=== PATIENT | male | born 1945 | race Caucasian/White ===

== ENCOUNTER 2019-03-26 15:56 | Inpatient (IN) | payer MEDICARE, MEDICAID ==
[~2019-03-26] VITALS: Ht 162.6 cm; Wt 90.9 kg
[~2019-03-26 15:56] MED LIST: ACET-2247 PO; AMLO10TA7 PO; ATOR40TA28 PO; CARV25 PO; FAMO20 PO; FOLI1TAB15 PO; FURO40 PO; HYDR-4174 PO; INSU100V SQ; ISOS10TA16 PO; PRED5 PO; RIVA20TA PO; TACR1 PO; TAMS-13 PO; TRAVZOS OU
[2019-03-26] MEDS ORDERED: TACR1 PO ×2 (16:14→18:06)
[2019-03-26] MEDS ORDERED: FURO40 PO (16:14)
[2019-03-26] MEDS ORDERED: LIPA1CAP18 PO (16:14)
[2019-03-26] MEDS ORDERED: GABA-531 PO (16:14)
[2019-03-26 16:25] LABS: BASOPHILS % (AUTO) 0.5 % (0.0-2.0); EOSINOPHILS % (AUTO) 0.3 % (1.0-6.0); HEMOGLOBIN 12.6 g/dL (13.5-17.5); LYMPHOCYTES # (AUTO) 1.2 K/uL (1.0-4.8); LYMPHOCYTES % (AUTO) 9.1 % (22.0-44.0); MEAN CORPUSCULAR HEMOGLOBIN 28.8 pg (26.0-34.0); MEAN CORPUSCULAR HGB CONC 33.2 G/dL (31.0-37.0); MEAN CORPUSCULAR VOLUME 87 fL (80-100); MONOCYTES # (AUTO) 1.1 K/uL (0.1-1.0); MONOCYTES % (AUTO) 8.2 % (2.0-9.0); NEUTROPHILS % (AUTO) 81.9 % (40.0-70.0); PLATELET COUNT (AUTO) 162 K/uL (150-450); RED BLOOD CELL COUNT(AUTO) 4.37 MIL/uL (4.50-5.90); RED CELL DISTRIBUTION WIDTH 16.5 % (11.5-14.5)
[2019-03-26 16:36] LABS: GLUCOSE,POINT OF CARE 266 MG/DL (70-110)
[2019-03-26 16:42] LABS: CALCIUM, TOTAL 9.2 mg/dL (8.8-10.5); CREATININE 1.53 mg/dL (0.60-1.30); POTASSIUM 3.8 mmol/L (3.5-5.1)
[2019-03-26 16:48] LABS: ALBUMIN 3.1 g/dL (3.4-5.0); BILIRUBIN,TOTAL 0.9 mg/dL (0.1-1.0); TOTAL PROTEIN, SERUM 6.7 g/dL (6.4-8.2)
[2019-03-26] MEDS ORDERED: NITROGLYCERIN 0.4 MG SUBLINGUAL TABLET #25 SL ONE (18:00)
[2019-03-26] MEDS ORDERED: ATOR20TA86 PO (18:06)
[2019-03-26] MEDS ORDERED: ACETAMINOPHEN 325 MG TABLET PO PRN (18:30)
[2019-03-26] MEDS ORDERED: 0.9% SODIUM CHLORIDE 10 ML SYRINGE IVP PRN (18:30)
[2019-03-26] MEDS ORDERED: ONDANSETRON HCL 4 MG/2 ML VIAL IVP PRN ×2 (18:30→21:00)
[2019-03-26] MEDS ORDERED: MAGNESIUM HYDROXIDE SUSPENSION 30 ML UDCUP PO PRN (21:00)
[2019-03-26] MEDS ORDERED: ZOLPIDEM TARTRATE 10 MG TABLET PO PRN (21:00)
[2019-03-26] MEDS ORDERED: IPRATROPIUM BROMIDE 0.5 MG/2.5 ML NEB SOLUTION NEB PRN (21:00)
[2019-03-26 21:14] VITALS: BP 155/79
[2019-03-26] MEDS: CARVEDILOL 25 MG TABLET PO SCH (22:38)
[2019-03-26] MEDS: HydrALAZINE HCL 50 MG TABLET PO SCH (22:38)
[2019-03-26] MEDS: DOCUSATE SODIUM 100 MG CAPSULE PO SCH (22:38)
[2019-03-26] MEDS: TRAVOPROST-Z 0.004% 2.5 ML OPHTHALMIC SOLUTION OU SCH (22:38)
[2019-03-26] MEDS: ISOSORBIDE DINITRATE 10 MG TABLET PO SCH (22:38)
[2019-03-26] MEDS: TACROLIMUS ANHYDROUS 1 MG CAPSULE PO SCH (22:38)
[2019-03-26] MEDS: NITROGLYCERIN 2% (1 GM=INCH) PACKET TP SCH (23:53)
[2019-03-27] VITALS (7 sets, daily range): BP systolic 126–161; BP diastolic 69–82
[2019-03-27] MEDS: ACETAMINOPHEN 325 MG TABLET PO PRN ×2 (02:39→10:05)
[2019-03-27] MEDS: NITROGLYCERIN 2% (1 GM=INCH) PACKET TP SCH ×6 (06:08→23:44)
[2019-03-27] MEDS: DOCUSATE SODIUM 100 MG CAPSULE PO SCH ×2 (07:56→20:24)
[2019-03-27] MEDS: GABAPENTIN 300 MG CAPSULE PO SCH (07:56)
[2019-03-27] MEDS: ATORVASTATIN CALCIUM 20 MG TABLET PO SCH (07:56)
[2019-03-27 07:57] LABS: CHOL/HDL RATIO 3.2 (4.2-7.3)
[2019-03-27] MEDS: AmLODIPine BESYLATE 10 MG TABLET PO SCH (07:57)
[2019-03-27] MEDS: FAMOTIDINE 20 MG TABLET PO SCH (07:57)
[2019-03-27] MEDS: FOLIC ACID 1 MG TABLET PO SCH (07:57)
[2019-03-27] MEDS: ISOSORBIDE DINITRATE 10 MG TABLET PO SCH ×2 (07:57→20:21)
[2019-03-27] MEDS: ASPIRIN 81 MG CHEWABLE TABLET PO SCH (07:57)
[2019-03-27] MEDS: FUROSEMIDE 40 MG TABLET PO SCH (07:57)
[2019-03-27] MEDS: TAMSULOSIN HCL 0.4 MG CAPSULE PO SCH (07:57)
[2019-03-27] MEDS: CARVEDILOL 25 MG TABLET PO SCH ×2 (07:58→20:20)
[2019-03-27] MEDS: AMYLASE/LIPASE/PROTEASE 60/12/38 MU DR CAPSULE PO SCH ×3 (07:59→18:18)
[2019-03-27] MEDS: PredniSONE 5 MG TABLET PO SCH (07:59)
[2019-03-27] MEDS: TACROLIMUS ANHYDROUS 1 MG CAPSULE PO SCH ×2 (08:00→20:21)
[2019-03-27] MEDS: HydrALAZINE HCL 50 MG TABLET PO SCH ×2 (09:23→20:20)
[2019-03-27 11:37] LABS: APPEARANCE,URINE CLEAR (CLEAR); BILIRUBIN,URINE NEGATIVE (NEGATIVE); GLUCOSE, URINE (UA) >=1000 mg/dL (NEGATIVE); KETONES,URINE NEGATIVE (NEGATIVE); LEUKOCYTE ESTERASE ,URINE NEGATIVE (NEGATIVE); NITRATE,URINE NEGATIVE (NEGATIVE); OCCULT BLOOD,URINE NEGATIVE (NEGATIVE); PH,URINE 6.5 (5.0-8.0); PROTEIN,URINE SEE CONFIRM (NEGATIVE)
[2019-03-27 11:51] LABS: BACTERIA,URINE None Seen /HPF (None Seen); RBC,URINE 0-2 /HPF (0-2); SULFOSALICYLIC ACID,URINE 1+ (Negative); WBC,URINE 0-2 /HPF (0-5)
[2019-03-27] MEDS: TraMADol HCL 50 MG TABLET PO PRN ×2 (12:20→20:29)
[2019-03-27] MEDS: RIVAROXABAN 20 MG TABLET PO SCH ×2 (18:18→18:21)
[2019-03-27 19:17] LABS: INFLUENZA TYPE A NEGATIVE FOR TYPE A (NEGATIVE); INFLUENZA TYPE B NEGATIVE FOR TYPE B (NEGATIVE)
[2019-03-27] MEDS: TRAVOPROST-Z 0.004% 2.5 ML OPHTHALMIC SOLUTION OU SCH (20:21)
[2019-03-27] MEDS ORDERED: OxyCODONE HCL/ACETAMINOPHEN 5-325 MG TABLET PO PRN (22:30)
[2019-03-27] MEDS ORDERED: DEXTROSE 50%-WATER 25 GM/50 ML SYRINGE IVP PRN (22:30)
[2019-03-28 03:55] LABS: GLUCOMETER DEV NAME(LOC) 5N.2; GLUCOSE,POINT OF CARE 559 MG/DL (70-110)
[2019-03-28 04:00] LABS: GLUCOMETER DEV NAME(LOC) 5N.1; GLUCOSE,POINT OF CARE > 600 MG/DL (70-110)
[2019-03-28 04:35] VITALS: BP 173/70
[2019-03-28] MEDS: NITROGLYCERIN 2% (1 GM=INCH) PACKET TP SCH ×4 (06:00→23:10)
[2019-03-28 06:46] LABS: BASOPHILS % (AUTO) 0.1 % (0.0-2.0); EOSINOPHILS % (AUTO) 0.5 % (1.0-6.0); HEMATOCRIT 36.5 % (41-53); LYMPHOCYTES # (AUTO) 0.9 K/uL (1.0-4.8); LYMPHOCYTES % (AUTO) 7.1 % (22.0-44.0); MEAN CORPUSCULAR HEMOGLOBIN 28.7 pg (26.0-34.0); MEAN CORPUSCULAR HGB CONC 32.8 G/dL (31.0-37.0); MEAN CORPUSCULAR VOLUME 88 fL (80-100); MONOCYTES % (AUTO) 7.9 % (2.0-9.0); NEUTROPHILS % (AUTO) 84.4 % (40.0-70.0); PLATELET COUNT (AUTO) 141 K/uL (150-450); RED BLOOD CELL COUNT(AUTO) 4.17 MIL/uL (4.50-5.90); RED CELL DISTRIBUTION WIDTH 16.2 % (11.5-14.5)
[2019-03-28 07:03] LABS: CREATININE 1.18 mg/dL (0.60-1.30); POTASSIUM 3.9 mmol/L (3.5-5.1)
[2019-03-28 07:20] VITALS: BP 157/68
[2019-03-28] MEDS: FUROSEMIDE 40 MG TABLET PO SCH (08:15)
[2019-03-28] MEDS: GABAPENTIN 300 MG CAPSULE PO SCH (08:15)
[2019-03-28] MEDS: FOLIC ACID 1 MG TABLET PO SCH (08:15)
[2019-03-28] MEDS: TAMSULOSIN HCL 0.4 MG CAPSULE PO SCH (08:15)
[2019-03-28] MEDS: FAMOTIDINE 20 MG TABLET PO SCH (08:15)
[2019-03-28] MEDS: AmLODIPine BESYLATE 10 MG TABLET PO SCH (08:15)
[2019-03-28] MEDS: DOCUSATE SODIUM 100 MG CAPSULE PO SCH ×2 (08:15→20:53)
[2019-03-28] MEDS: ATORVASTATIN CALCIUM 20 MG TABLET PO SCH (08:15)
[2019-03-28] MEDS: ASPIRIN 81 MG CHEWABLE TABLET PO SCH (08:16)
[2019-03-28] MEDS: HydrALAZINE HCL 50 MG TABLET PO SCH ×2 (08:16→20:53)
[2019-03-28] MEDS: AMYLASE/LIPASE/PROTEASE 60/12/38 MU DR CAPSULE PO SCH ×3 (08:16→17:37)
[2019-03-28] MEDS: TACROLIMUS ANHYDROUS 1 MG CAPSULE PO SCH ×2 (08:16→20:53)
[2019-03-28] MEDS: PredniSONE 5 MG TABLET PO SCH (08:17)
[2019-03-28] MEDS: CARVEDILOL 25 MG TABLET PO SCH ×2 (08:17→20:53)
[2019-03-28] MEDS: INSULIN LISPRO 100 UNITS/ML SQ PRN ×4 (08:25→20:51)
[2019-03-28] MEDS: ISOSORBIDE DINITRATE 10 MG TABLET PO SCH ×2 (09:00→20:53)
[2019-03-28] MEDS: OxyCODONE HCL/ACETAMINOPHEN 10-325 MG TABLET PO PRN ×3 (10:47→21:58)
[2019-03-28 11:15] LABS: GLUCOMETER DEV NAME(LOC) 5S.1; GLUCOSE,POINT OF CARE 296 MG/DL (70-110)
[2019-03-28 11:30] VITALS: BP 132/68
[2019-03-28 11:45] LABS: GLUCOMETER DEV NAME(LOC) 5N.1; GLUCOSE,POINT OF CARE 231 MG/DL (70-110)
[2019-03-28] MEDS: INSULIN GLARGINE,HUM.REC.ANLOG 100 UNITS/ML SQ SCH ×2 (13:58→20:52)
[2019-03-28 15:45] VITALS: BP 150/70
[2019-03-28 17:10] LABS: GLUCOMETER DEV NAME(LOC) 5S.1; GLUCOSE,POINT OF CARE 286 MG/DL (70-110)
[2019-03-28] MEDS: RIVAROXABAN 20 MG TABLET PO SCH (17:38)
[2019-03-28] MEDS ORDERED: SODIUM CHLORIDE 0.9% 250 ML IV ONE (19:06)
[2019-03-28 19:16] VITALS: BP 136/73
[2019-03-28] MEDS: TRAVOPROST-Z 0.004% 2.5 ML OPHTHALMIC SOLUTION OU SCH (21:01)
[2019-03-28 23:50] VITALS: BP 144/71
[2019-03-29 05:07] VITALS: BP 146/74
[2019-03-29 05:31] LABS: BASOPHILS % (AUTO) 0.1 % (0.0-2.0); HEMATOCRIT 34.8 % (41-53); HEMOGLOBIN 11.4 g/dL (13.5-17.5); LYMPHOCYTES # (AUTO) 0.9 K/uL (1.0-4.8); LYMPHOCYTES % (AUTO) 8.1 % (22.0-44.0); MEAN CORPUSCULAR HEMOGLOBIN 28.8 pg (26.0-34.0); MEAN CORPUSCULAR HGB CONC 32.8 G/dL (31.0-37.0); MEAN CORPUSCULAR VOLUME 88 fL (80-100); MONOCYTES # (AUTO) 0.8 K/uL (0.1-1.0); NEUTROPHILS # (AUTO) 9.7 K/uL (1.8-7.7); NEUTROPHILS % (AUTO) 83.8 % (40.0-70.0); PLATELET COUNT (AUTO) 143 K/uL (150-450); RED BLOOD CELL COUNT(AUTO) 3.96 MIL/uL (4.50-5.90)
[2019-03-29 05:40] LABS: ALBUMIN 2.5 g/dL (3.4-5.0); BILIRUBIN,TOTAL 0.5 mg/dL (0.1-1.0); CALCIUM, TOTAL 9.3 mg/dL (8.8-10.5); CREATININE 1.38 mg/dL (0.60-1.30); POTASSIUM 4.4 mmol/L (3.5-5.1); TOTAL PROTEIN, SERUM 6.4 g/dL (6.4-8.2)
[2019-03-29] MEDS: INSULIN LISPRO 100 UNITS/ML SQ PRN ×4 (05:41→21:31)
[2019-03-29] MEDS: NITROGLYCERIN 2% (1 GM=INCH) PACKET TP SCH ×4 (05:43→23:27)
[2019-03-29 06:31] LABS: GLUCOMETER DEV NAME(LOC) 5N.1; GLUCOSE,POINT OF CARE 322 MG/DL (70-110)
[2019-03-29] MEDS: OxyCODONE HCL/ACETAMINOPHEN 10-325 MG TABLET PO PRN ×2 (07:40→20:46)
[2019-03-29] MEDS: AMYLASE/LIPASE/PROTEASE 60/12/38 MU DR CAPSULE PO SCH ×3 (08:00→17:53)
[2019-03-29] MEDS: TACROLIMUS ANHYDROUS 1 MG CAPSULE PO SCH ×3 (09:00→20:49)
[2019-03-29] MEDS: TAMSULOSIN HCL 0.4 MG CAPSULE PO SCH (09:00)
[2019-03-29] MEDS: GABAPENTIN 300 MG CAPSULE PO SCH (09:00)
[2019-03-29] MEDS: INSULIN GLARGINE,HUM.REC.ANLOG 100 UNITS/ML SQ SCH ×2 (09:00→21:00)
[2019-03-29] MEDS: FOLIC ACID 1 MG TABLET PO SCH (09:00)
[2019-03-29] MEDS: CARVEDILOL 25 MG TABLET PO SCH ×3 (09:00→20:49)
[2019-03-29] MEDS: PredniSONE 5 MG TABLET PO SCH ×2 (09:00→15:36)
[2019-03-29] MEDS: FAMOTIDINE 20 MG TABLET PO SCH (09:00)
[2019-03-29] MEDS: FUROSEMIDE 40 MG TABLET PO SCH (09:00)
[2019-03-29] MEDS: AmLODIPine BESYLATE 10 MG TABLET PO SCH ×2 (09:00→15:36)
[2019-03-29] MEDS: DOCUSATE SODIUM 100 MG CAPSULE PO SCH ×2 (09:00→20:46)
[2019-03-29] MEDS: ASPIRIN 81 MG CHEWABLE TABLET PO SCH ×2 (09:00→15:36)
[2019-03-29] MEDS: ISOSORBIDE DINITRATE 10 MG TABLET PO SCH ×2 (09:00→20:46)
[2019-03-29] MEDS: HydrALAZINE HCL 50 MG TABLET PO SCH ×3 (09:00→20:48)
[2019-03-29] MEDS: ATORVASTATIN CALCIUM 20 MG TABLET PO SCH (09:00)
[2019-03-29 09:37] VITALS: BP 158/70
[2019-03-29 11:16] VITALS: BP 152/77
[2019-03-29 12:46] LABS: GLUCOMETER DEV NAME(LOC) 5S.1; GLUCOSE,POINT OF CARE 282 MG/DL (70-110)
[2019-03-29] MEDS ORDERED: VANCOMYCIN HCL 1.5 GM in DEXTROSE 5%-WATER 250 ML IV ONE (13:00)
[2019-03-29] MEDS ORDERED: SODIUM CHLORIDE 0.9% 250 ML IV ONE (13:19)
[2019-03-29 15:36] VITALS: BP 183/67
[2019-03-29 17:46] LABS: GLUCOMETER DEV NAME(LOC) 5S.1; GLUCOSE,POINT OF CARE 239 MG/DL (70-110)
[2019-03-29] MEDS: RIVAROXABAN 20 MG TABLET PO SCH (17:53)
[2019-03-29 17:56] LABS: GLUCOMETER DEV NAME(LOC) 5S.2A; GLUCOSE,POINT OF CARE 293 MG/DL (70-110)
[2019-03-29 20:42] VITALS: BP 160/86
[2019-03-29] MEDS: TRAVOPROST-Z 0.004% 2.5 ML OPHTHALMIC SOLUTION OU SCH (20:48)
[2019-03-30] MEDS: OxyCODONE HCL/ACETAMINOPHEN 10-325 MG TABLET PO PRN (03:57)
[2019-03-30 04:25] VITALS: BP 152/67
[2019-03-30 05:11] LABS: GLUCOMETER DEV NAME(LOC) 5N.1; GLUCOSE,POINT OF CARE 158 MG/DL (70-110)
[2019-03-30] MEDS: INSULIN LISPRO 100 UNITS/ML SQ PRN (05:58)
[2019-03-30] MEDS: NITROGLYCERIN 2% (1 GM=INCH) PACKET TP SCH ×3 (05:59→12:00)
[2019-03-30 06:39] LABS: BASOPHILS % (AUTO) 0.1 % (0.0-2.0); EOSINOPHILS % (AUTO) 0.8 % (1.0-6.0); HEMATOCRIT 34.2 % (41-53); HEMOGLOBIN 11.5 g/dL (13.5-17.5); LYMPHOCYTES # (AUTO) 0.9 K/uL (1.0-4.8); LYMPHOCYTES % (AUTO) 8.7 % (22.0-44.0); MEAN CORPUSCULAR HEMOGLOBIN 29.2 pg (26.0-34.0); MEAN CORPUSCULAR HGB CONC 33.7 G/dL (31.0-37.0); MEAN CORPUSCULAR VOLUME 87 fL (80-100); MONOCYTES # (AUTO) 0.8 K/uL (0.1-1.0); MONOCYTES % (AUTO) 7.6 % (2.0-9.0); NEUTROPHILS # (AUTO) 8.8 K/uL (1.8-7.7); NEUTROPHILS % (AUTO) 82.8 % (40.0-70.0); PLATELET COUNT (AUTO) 162 K/uL (150-450); RED BLOOD CELL COUNT(AUTO) 3.95 MIL/uL (4.50-5.90); RED CELL DISTRIBUTION WIDTH 15.7 % (11.5-14.5)
[2019-03-30 07:03] LABS: ALBUMIN 2.4 g/dL (3.4-5.0); BILIRUBIN,TOTAL 0.8 mg/dL (0.1-1.0); CALCIUM, TOTAL 9.3 mg/dL (8.8-10.5); CREATININE 1.24 mg/dL (0.60-1.30); POTASSIUM 4.6 mmol/L (3.5-5.1); TOTAL PROTEIN, SERUM 6.2 g/dL (6.4-8.2)
[2019-03-30] MEDS ORDERED: VANCOMYCIN HCL 1.5 GM in DEXTROSE 5%-WATER 250 ML IV SCH (08:00)
[2019-03-30] MEDS ORDERED: VANCOMYCIN HCL 750 MG in DEXTROSE 5%-WATER 250 ML IV SCH (08:00)
[2019-03-30 08:15] VITALS: BP_SYST 134; BP_SYST 161; BP_DIAS 65; BP_DIAS 80
[2019-03-30] MEDS: AMYLASE/LIPASE/PROTEASE 60/12/38 MU DR CAPSULE PO SCH ×2 (08:19→12:00)
[2019-03-30] MEDS: AmLODIPine BESYLATE 10 MG TABLET PO SCH (08:19)
[2019-03-30] MEDS: DOCUSATE SODIUM 100 MG CAPSULE PO SCH (08:20)
[2019-03-30] MEDS: ASPIRIN 81 MG CHEWABLE TABLET PO SCH (08:20)
[2019-03-30] MEDS: ISOSORBIDE DINITRATE 10 MG TABLET PO SCH (08:20)
[2019-03-30] MEDS: TAMSULOSIN HCL 0.4 MG CAPSULE PO SCH (08:21)
[2019-03-30] MEDS: FAMOTIDINE 20 MG TABLET PO SCH (08:21)
[2019-03-30] MEDS: ATORVASTATIN CALCIUM 20 MG TABLET PO SCH (08:21)
[2019-03-30] MEDS: GABAPENTIN 300 MG CAPSULE PO SCH (08:21)
[2019-03-30] MEDS: FUROSEMIDE 40 MG TABLET PO SCH (08:21)
[2019-03-30] MEDS: FOLIC ACID 1 MG TABLET PO SCH (08:21)
[2019-03-30] MEDS: HydrALAZINE HCL 50 MG TABLET PO SCH (08:22)
[2019-03-30] MEDS: PredniSONE 5 MG TABLET PO SCH (08:22)
[2019-03-30] MEDS: CARVEDILOL 25 MG TABLET PO SCH (08:22)
[2019-03-30] MEDS: TACROLIMUS ANHYDROUS 1 MG CAPSULE PO SCH (08:23)
[2019-03-30] MEDS: INSULIN GLARGINE,HUM.REC.ANLOG 100 UNITS/ML SQ SCH (08:29)
[2019-03-30] MEDS ORDERED: MOM30 PO (10:27)
[2019-03-30 12:13] LABS: GLUCOMETER DEV NAME(LOC) 5S.1; GLUCOSE,POINT OF CARE 293 MG/DL (70-110)
[2019-03-30 12:21] LABS: GLUCOMETER DEV NAME(LOC) 5N.2; GLUCOSE,POINT OF CARE 223 MG/DL (70-110)
== END 2019-03-30 13:50 | disposition short-term general hospital (02) | DRG 311 ==
LOC: EMS 15:57 → 5S 19:44
PROVIDERS: ADMIT Hospitalist; ATTEND Hospitalist
DX: I24.9 Acute ischemic heart disease, unspecified (principal); N17.9 Acute kidney failure, unspecified; I13.0 Hypertensive heart and chronic kidney disease with heart failure and stage 1 through stage 4 chronic kidney disease, or unspecified chronic kidney disease; Z94.0 Kidney transplant status; E78.5 Hyperlipidemia, unspecified; H40.9 Unspecified glaucoma; N40.0 Benign prostatic hyperplasia without lower urinary tract symptoms; D64.9 Anemia, unspecified; D72.829 Elevated white blood cell count, unspecified; E11.22 Type 2 diabetes mellitus with diabetic chronic kidney disease; E11.65 Type 2 diabetes mellitus with hyperglycemia; E78.00 Pure hypercholesterolemia, unspecified; F12.90 Cannabis use, unspecified, uncomplicated; I25.2 Old myocardial infarction; I50.9 Heart failure, unspecified; N18.9 Chronic kidney disease, unspecified; Z79.01 Long term (current) use of anticoagulants; Z79.4 Long term (current) use of insulin; Z95.0 Presence of cardiac pacemaker; Z95.1 Presence of aortocoronary bypass graft; Z88.5 Allergy status to narcotic agent; Z79.899 Other long term (current) drug therapy; Z88.8 Allergy status to other drugs, medicaments and biological substances; I25.10 Atherosclerotic heart disease of native coronary artery without angina pectoris
CPT/HCPCS: 82947; 84145; 87040; 87205; 87804; 93005; 93306; J1815; J3370; J7050; J7060; J7507

== ENCOUNTER 2022-01-20 20:35 | Inpatient (IN) | payer MEDICARE, OTHER ==
[~2022-01-20] VITALS: Ht 167.6 cm; Wt 70.9 kg
[~2022-01-20 20:35] MED LIST changes: +AMLO-258 PO; -AMLO10TA7 PO; +ATOR20TA86 PO; -ATOR40TA28 PO; +GABA-1181 PO; +LIPA1CAP18 PO; +MAGN-169 PO; +PRED-549 PO; -PRED5 PO; +TACR1CAP12 PO; +TRAV2.5D7 OU; -TRAVZOS OU
[2022-01-21 00:22] LABS: COVID AG,FIA SOURCE NASOPHARYNGEAL
[2022-01-21] MEDS ORDERED: ACETAMINOPHEN 325 MG TABLET PO PRN ×2 (03:00)
[2022-01-21] MEDS ORDERED: ONDANSETRON HCL 4 MG/2 ML VIAL IVP PRN ×2 (03:00)
[2022-01-21] MEDS ORDERED: 0.9% SODIUM CHLORIDE 10 ML SYRINGE IVP PRN (03:00)
[2022-01-21] MEDS ORDERED: DICL100G51 TP (06:23)
[2022-01-21] MEDS ORDERED: PATI8.4P PO (06:23)
[2022-01-21] MEDS ORDERED: INSLAN SQ (06:23)
[2022-01-21] MEDS ORDERED: FLUC200T85 PO (06:23)
[2022-01-21] MEDS ORDERED: ATOR40TA28 PO (06:23)
[2022-01-21] MEDS ORDERED: FURO80 PO (06:23)
[2022-01-21] MEDS ORDERED: CARV3 PO (06:23)
[2022-01-21] MEDS ORDERED: PRED-549 PO (06:23)
[2022-01-21] MEDS ORDERED: TACR1TAB PO (06:23)
[2022-01-21] MEDS ORDERED: SODI650T33 PO (06:23)
[2022-01-21] MEDS ORDERED: TAMS-13 PO (06:23)
[2022-01-21] MEDS ORDERED: ASPI-1444 PO (06:23)
[2022-01-21 07:46] LABS: BASOPHILS % (AUTO) 0.2 % (0.0-2.0); EOSINOPHILS % (AUTO) 0.6 % (1.0-6.0); HEMATOCRIT 38.8 % (41-53); LYMPHOCYTES # (AUTO) 0.8 K/uL (1.0-4.8); LYMPHOCYTES % (AUTO) 12.2 % (22.0-44.0); MEAN CORPUSCULAR HEMOGLOBIN 27.5 pg (26.0-34.0); MEAN CORPUSCULAR HGB CONC 33.6 G/dL (31.0-37.0); MEAN CORPUSCULAR VOLUME 82 fL (80-100); MONOCYTES # (AUTO) 0.3 K/uL (0.1-1.0); MONOCYTES % (AUTO) 5.2 % (2.0-9.0); NEUTROPHILS # (AUTO) 5.3 K/uL (1.8-7.7); NEUTROPHILS % (AUTO) 81.8 % (40.0-70.0); PLATELET COUNT (AUTO) 229 K/uL (150-450); RED BLOOD CELL COUNT(AUTO) 4.74 MIL/uL (4.50-5.90); RED CELL DISTRIBUTION WIDTH 16.4 % (11.5-14.5)
[2022-01-21 08:40] LABS: ALBUMIN 2.2 g/dL (3.4-5.0); BILIRUBIN,TOTAL 0.2 mg/dL (0.1-1.0); C-REACTIVE PROTEIN QUANT 13.85 mg/dL (0.00-0.30); CREATININE 2.55 mg/dL (0.60-1.30); POTASSIUM 3.9 mmol/L (3.5-5.1)
[2022-01-21] MEDS ORDERED: SODIUM BICARBONATE 650 MG TABLET PO SCH ×2 (09:00→21:00)
[2022-01-21] MEDS ORDERED: [UNRECOGNIZED DRUG - OTHER] PO SCH (09:00)
[2022-01-21] MEDS ORDERED: FUROSEMIDE 80 MG TABLET PO SCH (09:00)
[2022-01-21] MEDS: CARVEDILOL 3.125 MG TABLET PO SCH ×2 (09:34→20:21)
[2022-01-21] MEDS: PredniSONE 5 MG TABLET PO SCH (09:45)
[2022-01-21] MEDS: TACROLIMUS 1 MG CAPSULE PO SCH (09:46)
[2022-01-21] MEDS: FLUCONAZOLE 200 MG TABLET PO SCH (09:47)
[2022-01-21] MEDS: INSULIN GLARGINE,HUM.REC.ANLOG 100 UNITS/ML SQ SCH (09:53)
[2022-01-21] MEDS: ASPIRIN 81 MG DR TABLET PO SCH (09:56)
[2022-01-21] MEDS: TAMSULOSIN HCL 0.4 MG CAPSULE PO SCH (09:57)
[2022-01-21] MEDS: ATORVASTATIN CALCIUM 40 MG TABLET PO SCH (09:57)
[2022-01-21 10:06] LABS: GLUCOSE,POINT OF CARE 114 MG/DL (70-110)
[2022-01-21] MEDS: DICLOFENAC SODIUM 1% 100 GM GEL [2GM] TP SCH ×4 (10:31→20:23)
[2022-01-21 16:10] LABS: CALCIUM, TOTAL 8.7 mg/dL (8.8-10.5); CREATININE 2.49 mg/dL (0.60-1.30); POTASSIUM 3.8 mmol/L (3.5-5.1); URIC ACID 7.3 mg/dL (2.6-7.2)
[2022-01-21 18:57] VITALS: BP 171/124
[2022-01-21] MEDS ORDERED: SODIUM BICARBONATE [ADULT] 8.4% 50 MEQ/50 ML SYRINGE IVP ONE (20:06)
[2022-01-21 20:15] VITALS: BP 161/69
[2022-01-21] MEDS: INSULIN LISPRO 100 UNITS/ML SQ PRN (20:39)
[2022-01-21 21:31] LABS: GLUCOMETER DEV NAME(LOC) 5N.1C; GLUCOSE,POINT OF CARE 190 MG/DL (70-110)
[2022-01-22 00:35] VITALS: BP 142/76
[2022-01-22 04:28] VITALS: BP 126/73
[2022-01-22 07:19] LABS: BILIRUBIN,TOTAL 0.2 mg/dL (0.1-1.0); C-REACTIVE PROTEIN QUANT 13.15 mg/dL (0.00-0.30); CALCIUM, TOTAL 8.9 mg/dL (8.8-10.5); CREATININE 2.23 mg/dL (0.60-1.30); POTASSIUM 3.4 mmol/L (3.5-5.1); TOTAL PROTEIN, SERUM 5.8 g/dL (6.4-8.2)
[2022-01-22 07:20] LABS: BASOPHILS % (AUTO) 0.2 % (0.0-2.0); EOSINOPHILS % (AUTO) 0 % (1.0-6.0); HEMATOCRIT 39.8 % (41-53); HEMOGLOBIN 13.4 g/dL (13.5-17.5); LYMPHOCYTES # (AUTO) 1.6 K/uL (1.0-4.8); LYMPHOCYTES % (AUTO) 25.4 % (22.0-44.0); MEAN CORPUSCULAR HEMOGLOBIN 27.7 pg (26.0-34.0); MEAN CORPUSCULAR HGB CONC 33.6 G/dL (31.0-37.0); MEAN CORPUSCULAR VOLUME 83 fL (80-100); MONOCYTES # (AUTO) 0.7 K/uL (0.1-1.0); MONOCYTES % (AUTO) 10.4 % (2.0-9.0); PLATELET COUNT (AUTO) 221 K/uL (150-450); RED BLOOD CELL COUNT(AUTO) 4.83 MIL/uL (4.50-5.90); RED CELL DISTRIBUTION WIDTH 16.4 % (11.5-14.5)
[2022-01-22 08:35] LABS: MAGNESIUM 1.6 mg/dL (1.80-2.40); PHOSPHORUS 3.1 mg/dL (2.5-4.9)
[2022-01-22] MEDS: INSULIN GLARGINE,HUM.REC.ANLOG 100 UNITS/ML SQ SCH (09:00)
[2022-01-22] MEDS: DICLOFENAC SODIUM 1% 100 GM GEL [2GM] TP SCH ×4 (09:00→21:34)
[2022-01-22] MEDS ORDERED: POTASSIUM CHLORIDE 10 MEQ ER TABLET PO ONE (09:00)
[2022-01-22] MEDS ORDERED: MAGNESIUM SULFATE 1 GM in DEXTROSE 5%-WATER 50 ML IV ONE (09:00)
[2022-01-22] MEDS ORDERED: ASPI81TA49 PO (10:50)
[2022-01-22] MEDS ORDERED: LATA2.5D14 OU (10:50)
[2022-01-22] MEDS ORDERED: DULA3PEN SQ (10:50)
[2022-01-22] MEDS ORDERED: CARV25TA32 PO (10:50)
[2022-01-22] MEDS ORDERED: EMPA10TA3 PO (10:50)
[2022-01-22] MEDS ORDERED: FURO40TA5 PO (10:50)
[2022-01-22] MEDS ORDERED: ATOR20TA65 PO (10:50)
[2022-01-22] MEDS ORDERED: HEPARIN SODIUM,PORCINE 5,000 UNITS/ML VIAL IVP PRN ×2 (12:15)
[2022-01-22] MEDS ORDERED: HEPARIN SODIUM 25000 UNITS/D5W 250 ML IV PRN (12:15)
[2022-01-22] MEDS ORDERED: REMDESIVIR 200 MG in SODIUM CHLORIDE 0.9% 250 ML IV ONE (13:15)
[2022-01-22 13:36] LABS: BASOPHILS % (AUTO) 0.6 % (0.0-2.0); EOSINOPHILS % (AUTO) 0.4 % (1.0-6.0); HEMATOCRIT 38.7 % (41-53); HEMOGLOBIN 12.7 g/dL (13.5-17.5); LYMPHOCYTES # (AUTO) 2.1 K/uL (1.0-4.8); LYMPHOCYTES % (AUTO) 24.2 % (22.0-44.0); MEAN CORPUSCULAR HEMOGLOBIN 27.1 pg (26.0-34.0); MEAN CORPUSCULAR HGB CONC 32.7 G/dL (31.0-37.0); MEAN CORPUSCULAR VOLUME 83 fL (80-100); MONOCYTES # (AUTO) 0.9 K/uL (0.1-1.0); MONOCYTES % (AUTO) 10.4 % (2.0-9.0); NEUTROPHILS # (AUTO) 5.5 K/uL (1.8-7.7); NEUTROPHILS % (AUTO) 64.4 % (40.0-70.0); PLATELET COUNT (AUTO) 187 K/uL (150-450); RED BLOOD CELL COUNT(AUTO) 4.69 MIL/uL (4.50-5.90); RED CELL DISTRIBUTION WIDTH 16.6 % (11.5-14.5)
[2022-01-22 13:37] LABS: PROTHROMBIN TIME 10.9 SEC (9.4-11.6)
[2022-01-22] MEDS: SODIUM BICARBONATE 650 MG TABLET PO SCH (13:39)
[2022-01-22] MEDS: TAMSULOSIN HCL 0.4 MG CAPSULE PO SCH (13:39)
[2022-01-22] MEDS: ASPIRIN 81 MG DR TABLET PO SCH (13:40)
[2022-01-22] MEDS: TACROLIMUS 1 MG CAPSULE PO SCH (13:40)
[2022-01-22] MEDS: CLOPIDOGREL BISULFATE 75 MG TABLET PO SCH (13:41)
[2022-01-22] MEDS: CARVEDILOL 3.125 MG TABLET PO SCH ×2 (13:41→20:23)
[2022-01-22] MEDS: ATORVASTATIN CALCIUM 40 MG TABLET PO SCH (13:41)
[2022-01-22] MEDS: PredniSONE 5 MG TABLET PO SCH (13:41)
[2022-01-22] MEDS: FUROSEMIDE 80 MG TABLET PO SCH (13:42)
[2022-01-22] MEDS: FLUCONAZOLE 200 MG TABLET PO SCH (13:43)
[2022-01-22 19:57] VITALS: BP 141/76
[2022-01-22 20:21] LABS: GLUCOMETER DEV NAME(LOC) 5S.2B; GLUCOSE,POINT OF CARE 201 MG/DL (70-110)
[2022-01-22] MEDS: INSULIN LISPRO 100 UNITS/ML SQ PRN (20:39)
[2022-01-22 23:57] VITALS: BP 145/77
[2022-01-23 05:13] VITALS: BP 157/77
[2022-01-23] MEDS: INSULIN LISPRO 100 UNITS/ML SQ PRN ×3 (06:32→17:51)
[2022-01-23 07:50] VITALS: BP 180/85
[2022-01-23 07:51] LABS: GLUCOMETER DEV NAME(LOC) 5N.1C; GLUCOSE,POINT OF CARE 194 MG/DL (70-110)
[2022-01-23 07:51] LABS: GLUCOMETER DEV NAME(LOC) 5N.1C; GLUCOSE,POINT OF CARE 75 MG/DL (70-110)
[2022-01-23] MEDS: ASPIRIN 81 MG DR TABLET PO SCH (09:45)
[2022-01-23] MEDS: FUROSEMIDE 80 MG TABLET PO SCH (09:45)
[2022-01-23] MEDS: FLUCONAZOLE 200 MG TABLET PO SCH (09:46)
[2022-01-23] MEDS: CARVEDILOL 3.125 MG TABLET PO SCH ×2 (09:46→22:07)
[2022-01-23] MEDS: ATORVASTATIN CALCIUM 40 MG TABLET PO SCH (09:46)
[2022-01-23] MEDS: SODIUM BICARBONATE 650 MG TABLET PO SCH (09:46)
[2022-01-23] MEDS: CLOPIDOGREL BISULFATE 75 MG TABLET PO SCH (09:46)
[2022-01-23] MEDS: TAMSULOSIN HCL 0.4 MG CAPSULE PO SCH (09:46)
[2022-01-23] MEDS: PredniSONE 5 MG TABLET PO SCH (09:46)
[2022-01-23] MEDS: TACROLIMUS 1 MG CAPSULE PO SCH (09:46)
[2022-01-23] MEDS: INSULIN GLARGINE,HUM.REC.ANLOG 100 UNITS/ML SQ SCH (09:58)
[2022-01-23] MEDS: DICLOFENAC SODIUM 1% 100 GM GEL [2GM] TP SCH ×4 (10:30→22:07)
[2022-01-23 11:56] LABS: GLUCOMETER DEV NAME(LOC) 5S.1B; GLUCOSE,POINT OF CARE 150 MG/DL (70-110)
[2022-01-23 12:01] LABS: GLUCOMETER DEV NAME(LOC) 5N.3; GLUCOSE,POINT OF CARE 296 MG/DL (70-110)
[2022-01-23 12:35] VITALS: BP 138/80
[2022-01-23] MEDS ORDERED: REMDESIVIR 100 MG in SODIUM CHLORIDE 0.9% 250 ML IV SCH (16:00)
[2022-01-23 16:35] VITALS: BP 155/95
[2022-01-23 17:06] LABS: GLUCOMETER DEV NAME(LOC) 5S.1B; GLUCOSE,POINT OF CARE 247 MG/DL (70-110)
[2022-01-23 19:50] VITALS: BP 139/76
[2022-01-23 20:36] LABS: GLUCOMETER DEV NAME(LOC) 5S.1B; GLUCOSE,POINT OF CARE 220 MG/DL (70-110)
[2022-01-23] MEDS ORDERED: REMDESIVIR 200 MG in SODIUM CHLORIDE 0.9% 250 ML IV ONE (22:15)
[2022-01-24] VITALS: BP 126/77
[2022-01-24 04:30] VITALS: BP 150/80
[2022-01-24] MEDS: INSULIN LISPRO 100 UNITS/ML SQ PRN ×2 (06:09→21:00)
[2022-01-24 08:00] VITALS: BP 159/82
[2022-01-24 08:06] LABS: GLUCOMETER DEV NAME(LOC) 5N.1C; GLUCOSE,POINT OF CARE 234 MG/DL (70-110)
[2022-01-24] MEDS: TAMSULOSIN HCL 0.4 MG CAPSULE PO SCH (08:31)
[2022-01-24] MEDS: FLUCONAZOLE 200 MG TABLET PO SCH (08:31)
[2022-01-24] MEDS: TACROLIMUS 1 MG CAPSULE PO SCH (08:31)
[2022-01-24] MEDS: ATORVASTATIN CALCIUM 40 MG TABLET PO SCH (08:32)
[2022-01-24] MEDS: ASPIRIN 81 MG DR TABLET PO SCH (08:32)
[2022-01-24] MEDS: PredniSONE 5 MG TABLET PO SCH (08:32)
[2022-01-24] MEDS: FUROSEMIDE 40 MG TABLET PO SCH (08:32)
[2022-01-24] MEDS: CLOPIDOGREL BISULFATE 75 MG TABLET PO SCH (08:32)
[2022-01-24] MEDS: CARVEDILOL 3.125 MG TABLET PO SCH ×2 (08:32→20:22)
[2022-01-24] MEDS: DICLOFENAC SODIUM 1% 100 GM GEL [2GM] TP SCH ×4 (08:35→20:24)
[2022-01-24] MEDS: INSULIN GLARGINE,HUM.REC.ANLOG 100 UNITS/ML SQ SCH (08:40)
[2022-01-24 12:41] VITALS: BP 190/90
[2022-01-24] MEDS ORDERED: HydrALAZINE HCL 20 MG/ML VIAL IVP PRN (13:15)
[2022-01-24 15:56] LABS: GLUCOMETER DEV NAME(LOC) 5N.1C; GLUCOSE,POINT OF CARE 121 MG/DL (70-110)
[2022-01-24] MEDS: HEPARIN SODIUM,PORCINE 5,000 UNITS/ML VIAL SQ SCH (16:00)
[2022-01-24 16:24] VITALS: BP 147/84
[2022-01-24 21:02] VITALS: BP 153/78
[2022-01-24] MEDS: REMDESIVIR 100 MG in SODIUM CHLORIDE 0.9% 250 ML IV SCH (21:53)
[2022-01-24] MEDS ORDERED: SODIUM CHLORIDE 0.9% 250 ML IV ONE (21:56)
[2022-01-24 22:31] LABS: GLUCOMETER DEV NAME(LOC) 5N.1C; GLUCOSE,POINT OF CARE 136 MG/DL (70-110)
[2022-01-24 22:31] LABS: GLUCOMETER DEV NAME(LOC) 5N.1C; GLUCOSE,POINT OF CARE 161 MG/DL (70-110)
[2022-01-25 00:37] VITALS: BP 155/80
[2022-01-25] MEDS: INSULIN LISPRO 100 UNITS/ML SQ PRN ×3 (06:19→21:21)
[2022-01-25 06:47] LABS: GLUCOMETER DEV NAME(LOC) 5S.2B; GLUCOSE,POINT OF CARE 177 MG/DL (70-110)
[2022-01-25 07:31] VITALS: BP 159/72
[2022-01-25] MEDS: FLUCONAZOLE 200 MG TABLET PO SCH (09:37)
[2022-01-25] MEDS: FUROSEMIDE 40 MG TABLET PO SCH (09:37)
[2022-01-25] MEDS: ASPIRIN 81 MG DR TABLET PO SCH (09:37)
[2022-01-25] MEDS: TAMSULOSIN HCL 0.4 MG CAPSULE PO SCH (09:37)
[2022-01-25] MEDS: ATORVASTATIN CALCIUM 40 MG TABLET PO SCH (09:37)
[2022-01-25] MEDS: CLOPIDOGREL BISULFATE 75 MG TABLET PO SCH (09:37)
[2022-01-25] MEDS: CARVEDILOL 3.125 MG TABLET PO SCH ×2 (09:37→20:44)
[2022-01-25] MEDS: PredniSONE 5 MG TABLET PO SCH (09:37)
[2022-01-25] MEDS: HEPARIN SODIUM,PORCINE 5,000 UNITS/ML VIAL SQ SCH ×2 (09:45)
[2022-01-25] MEDS: DICLOFENAC SODIUM 1% 100 GM GEL [2GM] TP SCH ×4 (09:50→21:00)
[2022-01-25] MEDS: INSULIN GLARGINE,HUM.REC.ANLOG 100 UNITS/ML SQ SCH (09:50)
[2022-01-25 10:44] VITALS: BP 142/62
[2022-01-25 10:56] LABS: D-DIMER 3.21 mg/L FEU (0.00-0.50)
[2022-01-25 12:22] LABS: ALBUMIN 1.9 g/dL (3.4-5.0); BILIRUBIN,TOTAL 0.4 mg/dL (0.1-1.0); C-REACTIVE PROTEIN QUANT 24.94 mg/dL (0.00-0.30); CALCIUM, TOTAL 8.9 mg/dL (8.8-10.5); CREATININE 2.13 mg/dL (0.60-1.30); MAGNESIUM 1.5 mg/dL (1.80-2.40); POTASSIUM 3.9 mmol/L (3.5-5.1)
[2022-01-25] MEDS: TACROLIMUS 0.5 MG CAPSULE PO SCH ×2 (12:47→21:20)
[2022-01-25] MEDS ORDERED: MAGNESIUM SULFATE 3 GM in DEXTROSE 5%-WATER 100 ML IV ONE (14:00)
[2022-01-25 14:49] VITALS: BP 152/76
[2022-01-25] MEDS: DOXYCYCLINE HYCLATE 100 MG TABLET PO SCH ×2 (15:06→20:41)
[2022-01-25] MEDS: CefTRIAXone 1 GM/DEXTROSE 50 ML IV SCH (15:09)
[2022-01-25 15:34] LABS: HEMATOCRIT 41.4 % (41-53); HEMOGLOBIN 13.6 g/dL (13.5-17.5); MEAN CORPUSCULAR HGB CONC 32.8 G/dL (31.0-37.0); MEAN CORPUSCULAR VOLUME 82 fL (80-100); PLATELET COUNT (AUTO) 248 K/uL (150-450); RED BLOOD CELL COUNT(AUTO) 5.03 MIL/uL (4.50-5.90); RED CELL DISTRIBUTION WIDTH 16.5 % (11.5-14.5)
[2022-01-25 15:59] LABS: BAND NEUTROPHILS % (MANUAL) 4 % (0-5); LYMPHOCYTES % (MANUAL) 6 % (22-44); MONOCYTES % (MANUAL) 6 % (2-9); SEGMENTED NEUTROPHILS % 84 % (40-70)
[2022-01-25] MEDS ORDERED: HEPARIN SODIUM,PORCINE 5,000 UNITS/ML VIAL IVP PRN ×2 (16:00)
[2022-01-25] MEDS ORDERED: HEPARIN SODIUM 25000 UNITS/D5W 250 ML IV PRN (16:00)
[2022-01-25 16:42] LABS: INR 1.3 (0.9-1.1); PROTHROMBIN TIME 13.3 SEC (9.4-11.6)
[2022-01-25 18:33] LABS: APPEARANCE,URINE TURBID (CLEAR); BILIRUBIN,URINE NEGATIVE (NEGATIVE); GLUCOSE, URINE (UA) NEGATIVE (NEGATIVE); KETONES,URINE NEGATIVE (NEGATIVE); LEUKOCYTE ESTERASE ,URINE LARGE (NEGATIVE); NITRATE,URINE NEGATIVE (NEGATIVE); OCCULT BLOOD,URINE MODERATE (NEGATIVE); PH,URINE 5.5 (5.0-8.0); PROTEIN,URINE 100-200,SEE CONFIRM mg/dL (NEGATIVE); SPECIFIC GRAVITIY, URINE 1.023 (1.003-1.030); UROBILINOGEN,URINE <=1.0 mg/dL (<=1.0)
[2022-01-25 19:37] LABS: SULFOSALICYLIC ACID,URINE 4+ (Negative); WBC,URINE Full Field /HPF (0-5)
[2022-01-25 19:38] LABS: BACTERIA,URINE Moderate /HPF (None Seen)
[2022-01-25 19:39] LABS: FINE GRANULAR CASTS,URINE 0-2 /LPF (None Seen); SQUAMOUS EPITHELIAL CELL,UR Rare /LPF (None Seen)
[2022-01-25 20:23] VITALS: BP 99/55
[2022-01-25 22:51] LABS: GLUCOMETER DEV NAME(LOC) 5S.2B; GLUCOSE,POINT OF CARE 370 MG/DL (70-110)
[2022-01-25 22:51] LABS: GLUCOMETER DEV NAME(LOC) 5S.2B; GLUCOSE,POINT OF CARE 146 MG/DL (70-110)
[2022-01-25] MEDS: REMDESIVIR 100 MG in SODIUM CHLORIDE 0.9% 250 ML IV SCH (23:08)
[2022-01-26 00:02] VITALS: BP 138/78
[2022-01-26 05:11] LABS: GLUCOMETER DEV NAME(LOC) 5N.3; GLUCOSE,POINT OF CARE 218 MG/DL (70-110)
[2022-01-26 06:00] LABS: BASOPHILS % (AUTO) 0.1 % (0.0-2.0); EOSINOPHILS % (AUTO) 0 % (1.0-6.0); HEMATOCRIT 39.2 % (41-53); HEMOGLOBIN 12.6 g/dL (13.5-17.5); LYMPHOCYTES # (AUTO) 1.3 K/uL (1.0-4.8); LYMPHOCYTES % (AUTO) 7.6 % (22.0-44.0); MEAN CORPUSCULAR HEMOGLOBIN 26.6 pg (26.0-34.0); MEAN CORPUSCULAR HGB CONC 32.2 G/dL (31.0-37.0); MEAN CORPUSCULAR VOLUME 83 fL (80-100); MONOCYTES # (AUTO) 1.1 K/uL (0.1-1.0); MONOCYTES % (AUTO) 6.6 % (2.0-9.0); NEUTROPHILS # (AUTO) 14.2 K/uL (1.8-7.7); PLATELET COUNT (AUTO) 282 K/uL (150-450); RED BLOOD CELL COUNT(AUTO) 4.74 MIL/uL (4.50-5.90)
[2022-01-26 06:26] LABS: NEUTROPHILS % (AUTO) 85.7 % (40.0-70.0)
[2022-01-26] MEDS: INSULIN LISPRO 100 UNITS/ML SQ PRN ×4 (06:27→21:28)
[2022-01-26 06:34] LABS: D-DIMER 1.21 mg/L FEU (0.00-0.50)
[2022-01-26 07:07] VITALS: BP 135/73
[2022-01-26 07:54] VITALS: BP 104/46
[2022-01-26 08:08] LABS: ALBUMIN 1.7 g/dL (3.4-5.0); BILIRUBIN,TOTAL 0.2 mg/dL (0.1-1.0); CALCIUM, TOTAL 8.9 mg/dL (8.8-10.5); CREATININE 3.28 mg/dL (0.60-1.30); POTASSIUM 4.1 mmol/L (3.5-5.1); TOTAL PROTEIN, SERUM 5.7 g/dL (6.4-8.2)
[2022-01-26 08:19] LABS: C-REACTIVE PROTEIN QUANT 35.05 mg/dL (0.00-0.30)
[2022-01-26] MEDS: ATORVASTATIN CALCIUM 40 MG TABLET PO SCH (09:32)
[2022-01-26] MEDS: ASPIRIN 81 MG DR TABLET PO SCH (09:32)
[2022-01-26] MEDS: CLOPIDOGREL BISULFATE 75 MG TABLET PO SCH (09:32)
[2022-01-26] MEDS: TACROLIMUS 0.5 MG CAPSULE PO SCH ×2 (09:32→21:26)
[2022-01-26] MEDS: TAMSULOSIN HCL 0.4 MG CAPSULE PO SCH (09:32)
[2022-01-26] MEDS: FLUCONAZOLE 200 MG TABLET PO SCH (09:33)
[2022-01-26] MEDS: FUROSEMIDE 40 MG TABLET PO SCH (09:33)
[2022-01-26] MEDS: PredniSONE 5 MG TABLET PO SCH (09:33)
[2022-01-26] MEDS: CARVEDILOL 3.125 MG TABLET PO SCH ×2 (09:33→21:25)
[2022-01-26] MEDS: DOXYCYCLINE HYCLATE 100 MG TABLET PO SCH (09:33)
[2022-01-26] MEDS: DICLOFENAC SODIUM 1% 100 GM GEL [2GM] TP SCH ×4 (09:54→21:24)
[2022-01-26] MEDS: INSULIN GLARGINE,HUM.REC.ANLOG 100 UNITS/ML SQ SCH (09:58)
[2022-01-26 11:35] VITALS: BP 106/54
[2022-01-26] MEDS: CefTRIAXone 1 GM/DEXTROSE 50 ML IV SCH (13:57)
[2022-01-26] MEDS ORDERED: SODIUM CHLORIDE 0.9% 100 ML ONE (14:00)
[2022-01-26 15:42] VITALS: BP 109/47
[2022-01-26 18:37] LABS: GLUCOMETER DEV NAME(LOC) 5N.1C; GLUCOSE,POINT OF CARE 215 MG/DL (70-110)
[2022-01-26 19:21] LABS: GLUCOMETER DEV NAME(LOC) 5N.3; GLUCOSE,POINT OF CARE 186 MG/DL (70-110)
[2022-01-26 19:21] LABS: GLUCOMETER DEV NAME(LOC) 5N.3; GLUCOSE,POINT OF CARE 195 MG/DL (70-110)
[2022-01-26 19:45] VITALS: BP 115/50
[2022-01-26 21:12] LABS: GLUCOMETER DEV NAME(LOC) 5S.1B; GLUCOSE,POINT OF CARE 145 MG/DL (70-110)
[2022-01-27 01:20] VITALS: BP 120/51
[2022-01-27 04:30] VITALS: BP 125/67
[2022-01-27 05:57] LABS: GLUCOMETER DEV NAME(LOC) 5S.2B; GLUCOSE,POINT OF CARE 155 MG/DL (70-110)
[2022-01-27 06:31] LABS: GLUCOMETER DEV NAME(LOC) 5S.1B; GLUCOSE,POINT OF CARE 139 MG/DL (70-110)
[2022-01-27 06:54] LABS: BASOPHILS % (AUTO) 0.1 % (0.0-2.0); EOSINOPHILS % (AUTO) 0.2 % (1.0-6.0); HEMOGLOBIN 11.9 g/dL (13.5-17.5); LYMPHOCYTES % (AUTO) 5.8 % (22.0-44.0); MEAN CORPUSCULAR HEMOGLOBIN 26.8 pg (26.0-34.0); MEAN CORPUSCULAR VOLUME 81 fL (80-100); MONOCYTES # (AUTO) 0.8 K/uL (0.1-1.0); MONOCYTES % (AUTO) 4.3 % (2.0-9.0); NEUTROPHILS # (AUTO) 15.5 K/uL (1.8-7.7); PLATELET COUNT (AUTO) 262 K/uL (150-450); RED BLOOD CELL COUNT(AUTO) 4.43 MIL/uL (4.50-5.90); RED CELL DISTRIBUTION WIDTH 17.2 % (11.5-14.5)
[2022-01-27 07:08] LABS: NEUTROPHILS % (AUTO) 89.6 % (40.0-70.0)
[2022-01-27 07:45] LABS: ALBUMIN 1.5 g/dL (3.4-5.0); BILIRUBIN,TOTAL 0.2 mg/dL (0.1-1.0); C-REACTIVE PROTEIN QUANT 23.97 mg/dL (0.00-0.30); CALCIUM, TOTAL 8.7 mg/dL (8.8-10.5); CREATININE 4.54 mg/dL (0.60-1.30); POTASSIUM 3.8 mmol/L (3.5-5.1)
[2022-01-27 07:51] VITALS: BP 128/71
[2022-01-27] MEDS: TACROLIMUS 0.5 MG CAPSULE PO SCH ×2 (08:45→20:57)
[2022-01-27] MEDS: ATORVASTATIN CALCIUM 40 MG TABLET PO SCH (08:46)
[2022-01-27] MEDS: CLOPIDOGREL BISULFATE 75 MG TABLET PO SCH (08:46)
[2022-01-27] MEDS: PredniSONE 5 MG TABLET PO SCH (08:46)
[2022-01-27] MEDS: ASPIRIN 81 MG DR TABLET PO SCH (08:46)
[2022-01-27 08:47] LABS: INR 1.1 (0.9-1.1); PROTHROMBIN TIME 12.1 SEC (9.4-11.6)
[2022-01-27] MEDS: CARVEDILOL 3.125 MG TABLET PO SCH ×2 (08:47→20:57)
[2022-01-27] MEDS: FLUCONAZOLE 200 MG TABLET PO SCH (08:47)
[2022-01-27] MEDS: TAMSULOSIN HCL 0.4 MG CAPSULE PO SCH (08:48)
[2022-01-27] MEDS: FUROSEMIDE 40 MG TABLET PO SCH (08:48)
[2022-01-27] MEDS: INSULIN GLARGINE,HUM.REC.ANLOG 100 UNITS/ML SQ SCH (10:16)
[2022-01-27] MEDS: DICLOFENAC SODIUM 1% 100 GM GEL [2GM] TP SCH ×4 (10:17→20:57)
[2022-01-27 12:22] VITALS: BP 133/57
[2022-01-27] MEDS ORDERED: PIPERACILLIN SODIUM/TAZOBACTAM 2.25 GM in DEXTROSE 5%-WATER 50 ML IV SCH (13:00)
[2022-01-27] MEDS ORDERED: *CLINICAL-MEROPENEM DOSING CLINICAL ONE (15:30)
[2022-01-27 15:47] VITALS: BP 126/70
[2022-01-27] MEDS: MetroNIDAZOLE 500 MG TABLET PO SCH ×2 (17:50→23:37)
[2022-01-27] MEDS: INSULIN LISPRO 100 UNITS/ML SQ PRN ×2 (18:59→20:58)
[2022-01-27 20:13] VITALS: BP 136/73
[2022-01-27] MEDS ORDERED: SODIUM CHLORIDE 0.9% 500 ML IV ONE (20:15)
[2022-01-27 20:57] LABS: GLUCOMETER DEV NAME(LOC) 5S.2B; GLUCOSE,POINT OF CARE 241 MG/DL (70-110)
[2022-01-27] MEDS: MEROPENEM 500 MG in SODIUM CHLORIDE 0.9% 50 ML IV SCH (20:57)
[2022-01-28 00:24] VITALS: BP 144/67
[2022-01-28 04:00] VITALS: BP 140/80
[2022-01-28 06:41] LABS: BASOPHILS % (AUTO) 0.2 % (0.0-2.0); EOSINOPHILS % (AUTO) 0.3 % (1.0-6.0); HEMATOCRIT 37.9 % (41-53); HEMOGLOBIN 12.4 g/dL (13.5-17.5); LYMPHOCYTES # (AUTO) 1.1 K/uL (1.0-4.8); LYMPHOCYTES % (AUTO) 7.4 % (22.0-44.0); MEAN CORPUSCULAR HEMOGLOBIN 26.6 pg (26.0-34.0); MEAN CORPUSCULAR HGB CONC 32.7 G/dL (31.0-37.0); MEAN CORPUSCULAR VOLUME 82 fL (80-100); MONOCYTES # (AUTO) 0.7 K/uL (0.1-1.0); MONOCYTES % (AUTO) 4.4 % (2.0-9.0); NEUTROPHILS # (AUTO) 13.6 K/uL (1.8-7.7); PLATELET COUNT (AUTO) 283 K/uL (150-450); RED BLOOD CELL COUNT(AUTO) 4.65 MIL/uL (4.50-5.90); RED CELL DISTRIBUTION WIDTH 17.1 % (11.5-14.5)
[2022-01-28 06:47] LABS: GLUCOMETER DEV NAME(LOC) 5S.1B; GLUCOSE,POINT OF CARE 221 MG/DL (70-110)
[2022-01-28 06:48] LABS: GLUCOMETER DEV NAME(LOC) 5S.1B; GLUCOSE,POINT OF CARE 104 MG/DL (70-110)
[2022-01-28 06:49] LABS: INR 1.1 (0.9-1.1); NEUTROPHILS % (AUTO) 87.7 % (40.0-70.0); PROTHROMBIN TIME 11.9 SEC (9.4-11.6)
[2022-01-28 07:55] VITALS: BP 129/56
[2022-01-28 07:55] LABS: ALBUMIN 1.5 g/dL (3.4-5.0); BILIRUBIN,TOTAL 0.2 mg/dL (0.1-1.0); C-REACTIVE PROTEIN QUANT 12.99 mg/dL (0.00-0.30); CALCIUM, TOTAL 8.5 mg/dL (8.8-10.5); CREATININE 5.56 mg/dL (0.60-1.30); MAGNESIUM 2.2 mg/dL (1.80-2.40); POTASSIUM 4.1 mmol/L (3.5-5.1)
[2022-01-28] MEDS ORDERED: MEROPENEM 500 MG in SODIUM CHLORIDE 0.9% 50 ML IV SCH (09:00)
[2022-01-28] MEDS: MetroNIDAZOLE 500 MG TABLET PO SCH ×3 (10:42→23:36)
[2022-01-28] MEDS: CARVEDILOL 3.125 MG TABLET PO SCH ×2 (10:43→20:35)
[2022-01-28] MEDS: ATORVASTATIN CALCIUM 40 MG TABLET PO SCH (10:43)
[2022-01-28] MEDS: FLUCONAZOLE 200 MG TABLET PO SCH (10:43)
[2022-01-28] MEDS: MEROPENEM 500 MG in SODIUM CHLORIDE 0.9% 50 ML IV SCH ×2 (10:43→20:35)
[2022-01-28] MEDS: TAMSULOSIN HCL 0.4 MG CAPSULE PO SCH (10:43)
[2022-01-28] MEDS: FUROSEMIDE 40 MG TABLET PO SCH (10:43)
[2022-01-28] MEDS: PredniSONE 5 MG TABLET PO SCH (10:44)
[2022-01-28] MEDS: INSULIN GLARGINE,HUM.REC.ANLOG 100 UNITS/ML SQ SCH (10:46)
[2022-01-28] MEDS: DICLOFENAC SODIUM 1% 100 GM GEL [2GM] TP SCH ×4 (10:49→20:35)
[2022-01-28 11:34] VITALS: BP 130/77
[2022-01-28] MEDS: INSULIN LISPRO 100 UNITS/ML SQ PRN ×2 (11:46→18:36)
[2022-01-28 14:47] LABS: APPEARANCE,URINE TURBID (CLEAR); BILIRUBIN,URINE NEGATIVE (NEGATIVE); GLUCOSE, URINE (UA) TRACE mg/dL (NEGATIVE); KETONES,URINE NEGATIVE (NEGATIVE); LEUKOCYTE ESTERASE ,URINE LARGE (NEGATIVE); NITRATE,URINE NEGATIVE (NEGATIVE); OCCULT BLOOD,URINE LARGE (NEGATIVE); PROTEIN,URINE 100-200,SEE CONFIRM mg/dL (NEGATIVE); SPECIFIC GRAVITIY, URINE 1.017 (1.003-1.030); UROBILINOGEN,URINE <=1.0 mg/dL (<=1.0)
[2022-01-28 14:52] LABS: CREATININE,URINE RANDOM 205.2 mg/dL (30.0-125.0); PROTEIN,URINE RANDOM 233 mg/dL (0-11.9); SODIUM,URINE RANDOM 34 mmol/l (20-110); UREA NITROGEN,URINE RANDOM 284 mg/dL (350-1000)
[2022-01-28 15:00] LABS: WBC,URINE 51-100 /HPF (0-5)
[2022-01-28 15:01] LABS: BACTERIA,URINE Moderate /HPF (None Seen); SQUAMOUS EPITHELIAL CELL,UR Few /LPF (None Seen)
[2022-01-28 15:02] LABS: COARSE GRANULAR CASTS,URINE 0-2 /LPF (None Seen)
[2022-01-28 15:29] LABS: SULFOSALICYLIC ACID,URINE 3+ (Negative)
[2022-01-28 15:57] VITALS: BP 124/72
[2022-01-28] MEDS: SODIUM CHLORIDE 1 GM TABLET PO SCH ×2 (17:35→20:35)
[2022-01-28 19:01] LABS: GLUCOMETER DEV NAME(LOC) 5N.1C; GLUCOSE,POINT OF CARE 161 MG/DL (70-110)
[2022-01-28 19:02] LABS: GLUCOMETER DEV NAME(LOC) 5N.1C; GLUCOSE,POINT OF CARE 176 MG/DL (70-110)
[2022-01-28 19:47] VITALS: BP 124/74
[2022-01-28 21:00] LABS: GLUCOMETER DEV NAME(LOC) 5S.2B; GLUCOSE,POINT OF CARE 117 MG/DL (70-110)
[2022-01-29] VITALS (7 sets, daily range): BP systolic 109–158; BP diastolic 56–81
[2022-01-29 02:21] LABS: C.DIFF GDH ANTIGEN, Stool Negative (Negative)
[2022-01-29 02:22] LABS: C.DIFF TOXINS A&B, Stool Negative (Negative)
[2022-01-29 06:34] LABS: BASOPHILS % (AUTO) 0.2 % (0.0-2.0); EOSINOPHILS % (AUTO) 0.2 % (1.0-6.0); HEMATOCRIT 40.6 % (41-53); HEMOGLOBIN 13.3 g/dL (13.5-17.5); LYMPHOCYTES # (AUTO) 0.9 K/uL (1.0-4.8); LYMPHOCYTES % (AUTO) 7.6 % (22.0-44.0); MEAN CORPUSCULAR HEMOGLOBIN 26.8 pg (26.0-34.0); MEAN CORPUSCULAR HGB CONC 32.7 G/dL (31.0-37.0); MEAN CORPUSCULAR VOLUME 82 fL (80-100); MONOCYTES # (AUTO) 0.5 K/uL (0.1-1.0); MONOCYTES % (AUTO) 4.3 % (2.0-9.0); NEUTROPHILS # (AUTO) 10.3 K/uL (1.8-7.7); PLATELET COUNT (AUTO) 277 K/uL (150-450); RED BLOOD CELL COUNT(AUTO) 4.95 MIL/uL (4.50-5.90); RED CELL DISTRIBUTION WIDTH 17.1 % (11.5-14.5)
[2022-01-29 06:45] LABS: NEUTROPHILS % (AUTO) 87.7 % (40.0-70.0)
[2022-01-29 06:46] LABS: GLUCOMETER DEV NAME(LOC) 5S.1B; GLUCOSE,POINT OF CARE 84 MG/DL (70-110)
[2022-01-29 07:08] LABS: D-DIMER 1.42 mg/L FEU (0.00-0.50)
[2022-01-29 07:38] LABS: ALBUMIN 1.6 g/dL (3.4-5.0); BILIRUBIN,TOTAL 0.2 mg/dL (0.1-1.0); C-REACTIVE PROTEIN QUANT 8.56 mg/dL (0.00-0.30); CALCIUM, TOTAL 8.3 mg/dL (8.8-10.5); CREATININE 6.19 mg/dL (0.60-1.30); POTASSIUM 4.2 mmol/L (3.5-5.1); TOTAL PROTEIN, SERUM 4.9 g/dL (6.4-8.2)
[2022-01-29] MEDS: ATORVASTATIN CALCIUM 40 MG TABLET PO SCH (09:51)
[2022-01-29] MEDS: PredniSONE 5 MG TABLET PO SCH (09:51)
[2022-01-29] MEDS: CARVEDILOL 3.125 MG TABLET PO SCH ×2 (09:51→20:34)
[2022-01-29] MEDS: TAMSULOSIN HCL 0.4 MG CAPSULE PO SCH (09:51)
[2022-01-29] MEDS: MetroNIDAZOLE 500 MG TABLET PO SCH (09:51)
[2022-01-29] MEDS: FLUCONAZOLE 200 MG TABLET PO SCH (09:59)
[2022-01-29] MEDS: FUROSEMIDE 40 MG TABLET PO SCH (09:59)
[2022-01-29] MEDS: SODIUM CHLORIDE 1 GM TABLET PO SCH ×3 (09:59→20:34)
[2022-01-29] MEDS: INSULIN GLARGINE,HUM.REC.ANLOG 100 UNITS/ML SQ SCH (10:00)
[2022-01-29] MEDS: DICLOFENAC SODIUM 1% 100 GM GEL [2GM] TP SCH ×4 (10:01→20:35)
[2022-01-29] MEDS: CITRIC ACID/SODIUM CITRATE 30 ML SOLUTION UDCUP PO SCH ×2 (10:01→20:34)
[2022-01-29] MEDS ORDERED: HEPARIN SODIUM,PORCINE 1,000 UNITS/ML VIAL IVP ONE (12:00)
[2022-01-29] MEDS: INSULIN LISPRO 100 UNITS/ML SQ PRN (12:18)
[2022-01-29 12:56] LABS: GLUCOMETER DEV NAME(LOC) 5S.2B; GLUCOSE,POINT OF CARE 172 MG/DL (70-110)
[2022-01-29 14:07] LABS: S PNEUMO SOURCE Urine; STREP PNEUMONIAE AG URINE Negative (Negative)
[2022-01-29 16:07] LABS: LEGIONELLA PNEUMO AG URINE Negative (Negative)
[2022-01-29] MEDS ORDERED: FentaNYL CITRATE PF 100 MCG/2 ML VIAL ONE (19:05)
[2022-01-29] MEDS ORDERED: MIDAZOLAM HCL 2 MG/2 ML VIAL ONE (19:05)
[2022-01-29] MEDS ORDERED: HEPARIN SODIUM,PORCINE 1,000 UNITS/ML 10 ML VIAL ONE (19:20)
[2022-01-29] MEDS ORDERED: FentaNYL CITRATE PF 100 MCG/2 ML VIAL IVP ONE (20:00)
[2022-01-29] MEDS ORDERED: MEROPENEM 500 MG in SODIUM CHLORIDE 0.9% 50 ML IV SCH (21:00)
[2022-01-29 21:26] LABS: GLUCOMETER DEV NAME(LOC) 5S.2B; GLUCOSE,POINT OF CARE 67 MG/DL (70-110)
[2022-01-29] MEDS ORDERED: SODIUM CHLORIDE 0.9% 4,000 ML ONE (23:32)
[2022-01-30] VITALS (10 sets, daily range): BP systolic 119–158; BP diastolic 63–78
[2022-01-30] MEDS: DEXTROSE 50%-WATER 25 GM/50 ML SYRINGE IVP PRN (06:25)
[2022-01-30] MEDS: CARVEDILOL 3.125 MG TABLET PO SCH ×2 (08:29→20:40)
[2022-01-30] MEDS: FUROSEMIDE 40 MG TABLET PO SCH (08:29)
[2022-01-30] MEDS: PredniSONE 5 MG TABLET PO SCH (08:29)
[2022-01-30] MEDS: ATORVASTATIN CALCIUM 40 MG TABLET PO SCH (08:29)
[2022-01-30] MEDS: SODIUM CHLORIDE 1 GM TABLET PO SCH ×3 (08:29→20:40)
[2022-01-30] MEDS: CITRIC ACID/SODIUM CITRATE 30 ML SOLUTION UDCUP PO SCH ×2 (08:29→20:40)
[2022-01-30] MEDS: TAMSULOSIN HCL 0.4 MG CAPSULE PO SCH (08:29)
[2022-01-30] MEDS: FLUCONAZOLE 200 MG TABLET PO SCH (08:29)
[2022-01-30] MEDS: DICLOFENAC SODIUM 1% 100 GM GEL [2GM] TP SCH ×4 (08:30→20:41)
[2022-01-30] MEDS: INSULIN GLARGINE,HUM.REC.ANLOG 100 UNITS/ML SQ SCH (08:30)
[2022-01-30 08:32] LABS: GLUCOMETER DEV NAME(LOC) 5S.2B; GLUCOSE,POINT OF CARE 199 MG/DL (70-110)
[2022-01-30 08:34] LABS: BASOPHILS % (AUTO) 0.7 % (0.0-2.0); EOSINOPHILS % (AUTO) 0.9 % (1.0-6.0); HEMOGLOBIN 13.8 g/dL (13.5-17.5); LYMPHOCYTES # (AUTO) 2.1 K/uL (1.0-4.8); LYMPHOCYTES % (AUTO) 18.1 % (22.0-44.0); MEAN CORPUSCULAR HEMOGLOBIN 26.4 pg (26.0-34.0); MEAN CORPUSCULAR HGB CONC 32.2 G/dL (31.0-37.0); MEAN CORPUSCULAR VOLUME 82 fL (80-100); MONOCYTES % (AUTO) 8.7 % (2.0-9.0); NEUTROPHILS # (AUTO) 8.1 K/uL (1.8-7.7); NEUTROPHILS % (AUTO) 71.6 % (40.0-70.0); PLATELET COUNT (AUTO) 343 K/uL (150-450); RED BLOOD CELL COUNT(AUTO) 5.23 MIL/uL (4.50-5.90); RED CELL DISTRIBUTION WIDTH 17.7 % (11.5-14.5)
[2022-01-30 08:58] LABS: ALBUMIN 1.7 g/dL (3.4-5.0); BILIRUBIN,TOTAL 0.4 mg/dL (0.1-1.0); CALCIUM, TOTAL 8.5 mg/dL (8.8-10.5); CREATININE 5.26 mg/dL (0.60-1.30); POTASSIUM 5.6 mmol/L (3.5-5.1); TOTAL PROTEIN, SERUM 5.4 g/dL (6.4-8.2)
[2022-01-30 09:06] LABS: GLUCOMETER DEV NAME(LOC) 5N.1C; GLUCOSE,POINT OF CARE 47 MG/DL (70-110)
[2022-01-30] MEDS: MEROPENEM 500 MG in SODIUM CHLORIDE 0.9% 50 ML IV SCH ×2 (11:55→21:03)
[2022-01-30 15:06] LABS: OVA AND PARASITES EXAM Final report
[2022-01-30 17:51] LABS: GLUCOMETER DEV NAME(LOC) 5N.3; GLUCOSE,POINT OF CARE 120 MG/DL (70-110)
[2022-01-30 17:51] LABS: GLUCOMETER DEV NAME(LOC) 5N.3; GLUCOSE,POINT OF CARE 136 MG/DL (70-110)
[2022-01-30] MEDS ORDERED: SODIUM CHLORIDE 0.9% 250 ML IV ONE (21:00)
[2022-01-31] VITALS (15 sets, daily range): BP systolic 124–181; BP diastolic 47–99
[2022-01-31 05:41] LABS: GLUCOMETER DEV NAME(LOC) 5N.1C; GLUCOSE,POINT OF CARE 145 MG/DL (70-110)
[2022-01-31 06:31] LABS: GLUCOMETER DEV NAME(LOC) 5S.1B; GLUCOSE,POINT OF CARE 83 MG/DL (70-110)
[2022-01-31] MEDS: PredniSONE 5 MG TABLET PO SCH (08:30)
[2022-01-31] MEDS: FLUCONAZOLE 200 MG TABLET PO SCH (08:30)
[2022-01-31] MEDS: ATORVASTATIN CALCIUM 40 MG TABLET PO SCH (08:30)
[2022-01-31] MEDS: SODIUM CHLORIDE 1 GM TABLET PO SCH ×3 (08:30→22:38)
[2022-01-31] MEDS: TAMSULOSIN HCL 0.4 MG CAPSULE PO SCH (08:30)
[2022-01-31] MEDS: CITRIC ACID/SODIUM CITRATE 30 ML SOLUTION UDCUP PO SCH ×2 (08:30→22:38)
[2022-01-31] MEDS: INSULIN GLARGINE,HUM.REC.ANLOG 100 UNITS/ML SQ SCH (08:31)
[2022-01-31] MEDS: CARVEDILOL 3.125 MG TABLET PO SCH ×2 (08:33→22:40)
[2022-01-31] MEDS: DICLOFENAC SODIUM 1% 100 GM GEL [2GM] TP SCH ×4 (08:33→21:00)
[2022-01-31] MEDS: FUROSEMIDE 40 MG TABLET PO SCH (08:33)
[2022-01-31] MEDS ORDERED: CLOPIDOGREL BISULFATE 75 MG TABLET PO SCH (09:00)
[2022-01-31] MEDS ORDERED: ASPIRIN 81 MG CHEWABLE TABLET PO SCH (09:00)
[2022-01-31] MEDS: MEROPENEM 500 MG in SODIUM CHLORIDE 0.9% 50 ML IV SCH (11:15)
[2022-01-31] MEDS: INSULIN LISPRO 100 UNITS/ML SQ PRN (11:17)
[2022-01-31 11:49] LABS: BASOPHILS % (AUTO) 0.3 % (0.0-2.0); EOSINOPHILS % (AUTO) 0.5 % (1.0-6.0); HEMATOCRIT 37.5 % (41-53); HEMOGLOBIN 12.1 g/dL (13.5-17.5); LYMPHOCYTES # (AUTO) 1.3 K/uL (1.0-4.8); LYMPHOCYTES % (AUTO) 17.3 % (22.0-44.0); MEAN CORPUSCULAR HEMOGLOBIN 26.6 pg (26.0-34.0); MEAN CORPUSCULAR HGB CONC 32.2 G/dL (31.0-37.0); MEAN CORPUSCULAR VOLUME 83 fL (80-100); MONOCYTES # (AUTO) 0.8 K/uL (0.1-1.0); NEUTROPHILS # (AUTO) 5.4 K/uL (1.8-7.7); NEUTROPHILS % (AUTO) 71.9 % (40.0-70.0); PLATELET COUNT (AUTO) 245 K/uL (150-450); RED BLOOD CELL COUNT(AUTO) 4.54 MIL/uL (4.50-5.90); RED CELL DISTRIBUTION WIDTH 17.6 % (11.5-14.5)
[2022-01-31 12:21] LABS: ALBUMIN 1.7 g/dL (3.4-5.0); BILIRUBIN,TOTAL 0.2 mg/dL (0.1-1.0); C-REACTIVE PROTEIN QUANT 6.11 mg/dL (0.00-0.30); CALCIUM, TOTAL 8.2 mg/dL (8.8-10.5); CREATININE 4.78 mg/dL (0.60-1.30); POTASSIUM 4.1 mmol/L (3.5-5.1); TOTAL PROTEIN, SERUM 4.8 g/dL (6.4-8.2)
[2022-01-31] MEDS ORDERED: BENZONATATE 100 MG CAPSULE PO PRN (21:15)
[2022-01-31 21:36] LABS: GLUCOMETER DEV NAME(LOC) 5N.1C; GLUCOSE,POINT OF CARE 120 MG/DL (70-110)
[2022-02-01] MEDS: MEROPENEM 500 MG in SODIUM CHLORIDE 0.9% 50 ML IV SCH ×3 (00:26→21:28)
[2022-02-01] MEDS: DICLOFENAC SODIUM 1% 100 GM GEL [2GM] TP SCH ×6 (00:26→20:52)
[2022-02-01 00:38] VITALS: BP 154/86
[2022-02-01 04:31] VITALS: BP 149/78
[2022-02-01] MEDS: DEXTROSE 50%-WATER 25 GM/50 ML SYRINGE IVP PRN ×2 (06:07→12:08)
[2022-02-01 06:16] LABS: GLUCOMETER DEV NAME(LOC) 5S.1B; GLUCOSE,POINT OF CARE 225 MG/DL (70-110)
[2022-02-01 06:16] LABS: GLUCOMETER DEV NAME(LOC) 5S.1B; GLUCOSE,POINT OF CARE 117 MG/DL (70-110)
[2022-02-01 06:35] LABS: BASOPHILS % (AUTO) 0.2 % (0.0-2.0); EOSINOPHILS % (AUTO) 0.6 % (1.0-6.0); HEMATOCRIT 35.4 % (41-53); HEMOGLOBIN 11.5 g/dL (13.5-17.5); LYMPHOCYTES # (AUTO) 1.3 K/uL (1.0-4.8); MEAN CORPUSCULAR HEMOGLOBIN 26.5 pg (26.0-34.0); MEAN CORPUSCULAR HGB CONC 32.4 G/dL (31.0-37.0); MEAN CORPUSCULAR VOLUME 82 fL (80-100); MONOCYTES # (AUTO) 0.8 K/uL (0.1-1.0); MONOCYTES % (AUTO) 10.7 % (2.0-9.0); NEUTROPHILS # (AUTO) 5.7 K/uL (1.8-7.7); NEUTROPHILS % (AUTO) 72.5 % (40.0-70.0); PLATELET COUNT (AUTO) 257 K/uL (150-450); RED BLOOD CELL COUNT(AUTO) 4.32 MIL/uL (4.50-5.90); RED CELL DISTRIBUTION WIDTH 16.9 % (11.5-14.5)
[2022-02-01 06:52] LABS: ALBUMIN 1.7 g/dL (3.4-5.0); BILIRUBIN,TOTAL 0.3 mg/dL (0.1-1.0); CALCIUM, TOTAL 7.8 mg/dL (8.8-10.5); CREATININE 2.73 mg/dL (0.60-1.30); POTASSIUM 3.1 mmol/L (3.5-5.1); TOTAL PROTEIN, SERUM 4.5 g/dL (6.4-8.2)
[2022-02-01 07:40] VITALS: BP 155/54
[2022-02-01] MEDS ORDERED: POTASSIUM CHLORIDE 20 MEQ ER TABLET PO ONE (09:15)
[2022-02-01] MEDS: CITRIC ACID/SODIUM CITRATE 30 ML SOLUTION UDCUP PO SCH ×2 (09:55→20:51)
[2022-02-01] MEDS: PredniSONE 5 MG TABLET PO SCH (09:56)
[2022-02-01] MEDS: SODIUM CHLORIDE 1 GM TABLET PO SCH ×3 (09:56→20:51)
[2022-02-01] MEDS: FUROSEMIDE 40 MG TABLET PO SCH (09:56)
[2022-02-01] MEDS: CARVEDILOL 3.125 MG TABLET PO SCH ×2 (09:56→20:51)
[2022-02-01] MEDS: FLUCONAZOLE 200 MG TABLET PO SCH (09:56)
[2022-02-01] MEDS: ATORVASTATIN CALCIUM 40 MG TABLET PO SCH (09:56)
[2022-02-01] MEDS: TAMSULOSIN HCL 0.4 MG CAPSULE PO SCH (09:56)
[2022-02-01] MEDS: INSULIN GLARGINE,HUM.REC.ANLOG 100 UNITS/ML SQ SCH (10:00)
[2022-02-01 11:56] LABS: GLUCOMETER DEV NAME(LOC) 5N.3; GLUCOSE,POINT OF CARE 56 MG/DL (70-110)
[2022-02-01 11:56] LABS: GLUCOMETER DEV NAME(LOC) 5N.3; GLUCOSE,POINT OF CARE 153 MG/DL (70-110)
[2022-02-01 13:31] LABS: GLUCOMETER DEV NAME(LOC) 5S.2B; GLUCOSE,POINT OF CARE 59 MG/DL (70-110)
[2022-02-01 17:15] VITALS: BP 141/57
[2022-02-01 18:06] LABS: GLUCOMETER DEV NAME(LOC) 5N.1C; GLUCOSE,POINT OF CARE 168 MG/DL (70-110)
[2022-02-01] MEDS ORDERED: HEPARIN SODIUM,PORCINE 1,000 UNITS/ML VIAL IVP ONE (18:25)
[2022-02-01 19:39] VITALS: BP 150/89
[2022-02-01] MEDS: INSULIN LISPRO 100 UNITS/ML SQ PRN (21:26)
[2022-02-01 22:16] LABS: GLUCOMETER DEV NAME(LOC) 5N.3; GLUCOSE,POINT OF CARE 184 MG/DL (70-110)
[2022-02-01 23:12] VITALS: BP 148/86
[2022-02-02 03:44] VITALS: BP 146/90
[2022-02-02 05:47] LABS: GLUCOMETER DEV NAME(LOC) 5S.1B; GLUCOSE,POINT OF CARE 82 MG/DL (70-110)
[2022-02-02 06:54] LABS: BASOPHILS % (AUTO) 0.2 % (0.0-2.0); EOSINOPHILS % (AUTO) 0.4 % (1.0-6.0); HEMATOCRIT 35.3 % (41-53); HEMOGLOBIN 11.5 g/dL (13.5-17.5); LYMPHOCYTES # (AUTO) 1.4 K/uL (1.0-4.8); LYMPHOCYTES % (AUTO) 19.9 % (22.0-44.0); MEAN CORPUSCULAR HEMOGLOBIN 26.8 pg (26.0-34.0); MEAN CORPUSCULAR HGB CONC 32.5 G/dL (31.0-37.0); MEAN CORPUSCULAR VOLUME 82 fL (80-100); MONOCYTES # (AUTO) 0.8 K/uL (0.1-1.0); MONOCYTES % (AUTO) 11.2 % (2.0-9.0); NEUTROPHILS # (AUTO) 4.9 K/uL (1.8-7.7); NEUTROPHILS % (AUTO) 68.3 % (40.0-70.0); PLATELET COUNT (AUTO) 237 K/uL (150-450); RED BLOOD CELL COUNT(AUTO) 4.28 MIL/uL (4.50-5.90); RED CELL DISTRIBUTION WIDTH 17.3 % (11.5-14.5)
[2022-02-02 07:33] LABS: ALBUMIN 1.7 g/dL (3.4-5.0); BILIRUBIN,TOTAL 0.4 mg/dL (0.1-1.0); CALCIUM, TOTAL 8.6 mg/dL (8.8-10.5); CREATININE 2.74 mg/dL (0.60-1.30); POTASSIUM 4.2 mmol/L (3.5-5.1); TOTAL PROTEIN, SERUM 4.9 g/dL (6.4-8.2)
[2022-02-02 08:00] VITALS: BP 159/73
[2022-02-02] MEDS: TAMSULOSIN HCL 0.4 MG CAPSULE PO SCH (08:52)
[2022-02-02] MEDS: PredniSONE 5 MG TABLET PO SCH (08:52)
[2022-02-02] MEDS: CARVEDILOL 3.125 MG TABLET PO SCH ×3 (08:52→21:48)
[2022-02-02] MEDS: FLUCONAZOLE 200 MG TABLET PO SCH (08:52)
[2022-02-02] MEDS: DICLOFENAC SODIUM 1% 100 GM GEL [2GM] TP SCH ×4 (08:52→21:00)
[2022-02-02] MEDS: FUROSEMIDE 40 MG TABLET PO SCH (08:52)
[2022-02-02] MEDS: ATORVASTATIN CALCIUM 40 MG TABLET PO SCH (08:52)
[2022-02-02] MEDS: CITRIC ACID/SODIUM CITRATE 30 ML SOLUTION UDCUP PO SCH ×3 (08:52→21:47)
[2022-02-02] MEDS: SODIUM CHLORIDE 1 GM TABLET PO SCH ×3 (08:52→21:48)
[2022-02-02] MEDS: INSULIN GLARGINE,HUM.REC.ANLOG 100 UNITS/ML SQ SCH (08:53)
[2022-02-02 10:44] VITALS: BP 144/74
[2022-02-02] MEDS: MEROPENEM 500 MG in SODIUM CHLORIDE 0.9% 50 ML IV SCH ×2 (11:43→21:53)
[2022-02-02] MEDS: INSULIN LISPRO 100 UNITS/ML SQ PRN (11:47)
[2022-02-02 15:29] VITALS: BP 147/65
[2022-02-02] MEDS ORDERED: ACETAMINOPHEN 325 MG TABLET PO PRN (16:45)
[2022-02-02 18:26] LABS: APPEARANCE,URINE CLEAR (CLEAR); BILIRUBIN,URINE NEGATIVE (NEGATIVE); GLUCOSE, URINE (UA) 300-500 mg/dL (NEGATIVE); KETONES,URINE NEGATIVE (NEGATIVE); LEUKOCYTE ESTERASE ,URINE TRACE (NEGATIVE); NITRATE,URINE NEGATIVE (NEGATIVE); OCCULT BLOOD,URINE TRACE (NEGATIVE); PROTEIN,URINE 100-200,SEE CONFIRM mg/dL (NEGATIVE); SPECIFIC GRAVITIY, URINE 1.011 (1.003-1.030); UROBILINOGEN,URINE <=1.0 mg/dL (<=1.0)
[2022-02-02 18:38] LABS: BACTERIA,URINE Few /HPF (None Seen); RBC,URINE 0-2 /HPF (0-2); SULFOSALICYLIC ACID,URINE 1+ (Negative)
[2022-02-02 21:20] VITALS: BP 139/57
[2022-02-03 00:30] VITALS: BP 156/72
[2022-02-03 04:23] VITALS: BP 159/56
[2022-02-03 07:47] VITALS: BP 154/66
[2022-02-03] MEDS: DICLOFENAC SODIUM 1% 100 GM GEL [2GM] TP SCH ×4 (09:00→21:15)
[2022-02-03 09:16] LABS: CALCIUM, TOTAL 7.7 mg/dL (8.8-10.5); CREATININE 2.46 mg/dL (0.60-1.30); POTASSIUM 3.8 mmol/L (3.5-5.1)
[2022-02-03] MEDS: SODIUM CHLORIDE 1 GM TABLET PO SCH ×3 (10:18→21:14)
[2022-02-03] MEDS: FLUCONAZOLE 200 MG TABLET PO SCH (10:18)
[2022-02-03] MEDS: TAMSULOSIN HCL 0.4 MG CAPSULE PO SCH (10:18)
[2022-02-03] MEDS: CITRIC ACID/SODIUM CITRATE 30 ML SOLUTION UDCUP PO SCH ×2 (10:18→21:14)
[2022-02-03] MEDS: CARVEDILOL 3.125 MG TABLET PO SCH ×2 (10:18→21:14)
[2022-02-03] MEDS: FUROSEMIDE 40 MG TABLET PO SCH (10:18)
[2022-02-03] MEDS: ATORVASTATIN CALCIUM 40 MG TABLET PO SCH (10:18)
[2022-02-03] MEDS: PredniSONE 5 MG TABLET PO SCH (10:18)
[2022-02-03] MEDS: INSULIN GLARGINE,HUM.REC.ANLOG 100 UNITS/ML SQ SCH (10:19)
[2022-02-03] MEDS: MEROPENEM 500 MG in SODIUM CHLORIDE 0.9% 50 ML IV SCH ×2 (11:02→21:15)
[2022-02-03 11:04] VITALS: BP 121/72
[2022-02-03 13:15] LABS: C-REACTIVE PROTEIN QUANT 17.14 mg/dL (0.00-0.30)
[2022-02-03] MEDS: INSULIN LISPRO 100 UNITS/ML SQ PRN ×3 (13:21→21:20)
[2022-02-03 15:25] VITALS: BP 158/57
[2022-02-03 20:15] VITALS: BP 156/56
[2022-02-03 23:42] LABS: GLUCOMETER DEV NAME(LOC) 5N.1C; GLUCOSE,POINT OF CARE 108 MG/DL (70-110)
[2022-02-03 23:42] LABS: GLUCOMETER DEV NAME(LOC) 5N.1C; GLUCOSE,POINT OF CARE 110 MG/DL (70-110)
[2022-02-03 23:43] LABS: GLUCOMETER DEV NAME(LOC) 5N.1C; GLUCOSE,POINT OF CARE 136 MG/DL (70-110)
[2022-02-03 23:43] LABS: GLUCOMETER DEV NAME(LOC) 5N.1C; GLUCOSE,POINT OF CARE 215 MG/DL (70-110)
[2022-02-03 23:43] LABS: GLUCOMETER DEV NAME(LOC) 5N.1C; GLUCOSE,POINT OF CARE 136 MG/DL (70-110)
[2022-02-03 23:46] LABS: GLUCOMETER DEV NAME(LOC) 5N.1C; GLUCOSE,POINT OF CARE 165 MG/DL (70-110)
[2022-02-03 23:46] LABS: GLUCOMETER DEV NAME(LOC) 5N.1C; GLUCOSE,POINT OF CARE 248 MG/DL (70-110)
[2022-02-03 23:46] LABS: GLUCOMETER DEV NAME(LOC) 5N.1C; GLUCOSE,POINT OF CARE 178 MG/DL (70-110)
[2022-02-04 00:24] VITALS: BP 155/72
[2022-02-04 02:51] LABS: GLUCOMETER DEV NAME(LOC) 5S.2B; GLUCOSE,POINT OF CARE 193 MG/DL (70-110)
[2022-02-04 06:38] VITALS: BP 141/66
[2022-02-04 06:51] LABS: GLUCOMETER DEV NAME(LOC) 5S.1B; GLUCOSE,POINT OF CARE 93 MG/DL (70-110)
[2022-02-04 07:15] LABS: BASOPHILS % (AUTO) 0.3 % (0.0-2.0); EOSINOPHILS % (AUTO) 0.8 % (1.0-6.0); HEMATOCRIT 30.9 % (41-53); LYMPHOCYTES # (AUTO) 1.2 K/uL (1.0-4.8); LYMPHOCYTES % (AUTO) 14.1 % (22.0-44.0); MEAN CORPUSCULAR HEMOGLOBIN 26.9 pg (26.0-34.0); MEAN CORPUSCULAR HGB CONC 32.3 G/dL (31.0-37.0); MEAN CORPUSCULAR VOLUME 83 fL (80-100); MONOCYTES # (AUTO) 0.7 K/uL (0.1-1.0); MONOCYTES % (AUTO) 8.5 % (2.0-9.0); NEUTROPHILS # (AUTO) 6.4 K/uL (1.8-7.7); NEUTROPHILS % (AUTO) 76.3 % (40.0-70.0); PLATELET COUNT (AUTO) 166 K/uL (150-450); RED BLOOD CELL COUNT(AUTO) 3.72 MIL/uL (4.50-5.90)
[2022-02-04 07:45] VITALS: BP 150/64
[2022-02-04 08:04] LABS: ALBUMIN 1.3 g/dL (3.4-5.0); BILIRUBIN,TOTAL 0.3 mg/dL (0.1-1.0); C-REACTIVE PROTEIN QUANT 16.04 mg/dL (0.00-0.30); CALCIUM, TOTAL 8.1 mg/dL (8.8-10.5); CREATININE 2.04 mg/dL (0.60-1.30); POTASSIUM 3.8 mmol/L (3.5-5.1); TOTAL PROTEIN, SERUM 4.5 g/dL (6.4-8.2)
[2022-02-04] MEDS: DICLOFENAC SODIUM 1% 100 GM GEL [2GM] TP SCH ×4 (09:00→21:00)
[2022-02-04] MEDS: CITRIC ACID/SODIUM CITRATE 30 ML SOLUTION UDCUP PO SCH ×2 (09:12→20:42)
[2022-02-04] MEDS: PredniSONE 5 MG TABLET PO SCH (09:12)
[2022-02-04] MEDS: SODIUM CHLORIDE 1 GM TABLET PO SCH (09:13)
[2022-02-04] MEDS: TAMSULOSIN HCL 0.4 MG CAPSULE PO SCH (09:13)
[2022-02-04] MEDS: FLUCONAZOLE 200 MG TABLET PO SCH (09:13)
[2022-02-04] MEDS: FUROSEMIDE 40 MG TABLET PO SCH (09:13)
[2022-02-04] MEDS: ATORVASTATIN CALCIUM 40 MG TABLET PO SCH (09:13)
[2022-02-04] MEDS: CARVEDILOL 3.125 MG TABLET PO SCH ×2 (09:13→20:42)
[2022-02-04] MEDS: INSULIN GLARGINE,HUM.REC.ANLOG 100 UNITS/ML SQ SCH (09:21)
[2022-02-04] MEDS: MEROPENEM 500 MG in SODIUM CHLORIDE 0.9% 50 ML IV SCH ×2 (11:00→21:17)
[2022-02-04] MEDS: INSULIN LISPRO 100 UNITS/ML SQ PRN ×3 (12:30→20:41)
[2022-02-04 20:11] LABS: GLUCOMETER DEV NAME(LOC) 5N.1C; GLUCOSE,POINT OF CARE 256 MG/DL (70-110)
[2022-02-04 20:11] LABS: GLUCOMETER DEV NAME(LOC) 5N.1C; GLUCOSE,POINT OF CARE 134 MG/DL (70-110)
[2022-02-04 20:26] LABS: GLUCOMETER DEV NAME(LOC) 5S.2B; GLUCOSE,POINT OF CARE 177 MG/DL (70-110)
[2022-02-04 20:26] LABS: GLUCOMETER DEV NAME(LOC) 5S.2B; GLUCOSE,POINT OF CARE 255 MG/DL (70-110)
[2022-02-05 06:45] VITALS: BP 161/75
[2022-02-05 08:29] LABS: BASOPHILS % (AUTO) 0.7 % (0.0-2.0); EOSINOPHILS % (AUTO) 0.8 % (1.0-6.0); HEMATOCRIT 35.3 % (41-53); HEMOGLOBIN 11.1 g/dL (13.5-17.5); LYMPHOCYTES # (AUTO) 1.5 K/uL (1.0-4.8); LYMPHOCYTES % (AUTO) 14.6 % (22.0-44.0); MEAN CORPUSCULAR HEMOGLOBIN 26.6 pg (26.0-34.0); MEAN CORPUSCULAR HGB CONC 31.6 G/dL (31.0-37.0); MEAN CORPUSCULAR VOLUME 84 fL (80-100); MONOCYTES # (AUTO) 0.8 K/uL (0.1-1.0); MONOCYTES % (AUTO) 7.3 % (2.0-9.0); NEUTROPHILS % (AUTO) 76.6 % (40.0-70.0); PLATELET COUNT (AUTO) 174 K/uL (150-450); RED CELL DISTRIBUTION WIDTH 17.4 % (11.5-14.5)
[2022-02-05 08:31] VITALS: BP 157/72
[2022-02-05 08:41] LABS: CALCIUM, TOTAL 8.8 mg/dL (8.8-10.5); CREATININE 1.82 mg/dL (0.60-1.30); POTASSIUM 4.1 mmol/L (3.5-5.1)
[2022-02-05 08:46] LABS: ALBUMIN 1.4 g/dL (3.4-5.0); BILIRUBIN,TOTAL 0.4 mg/dL (0.1-1.0); TOTAL PROTEIN, SERUM 5.2 g/dL (6.4-8.2)
[2022-02-05] MEDS ORDERED: INSULIN GLARGINE,HUM.REC.ANLOG 100 UNITS/ML SQ SCH (09:00)
[2022-02-05] MEDS: CITRIC ACID/SODIUM CITRATE 30 ML SOLUTION UDCUP PO SCH (09:18)
[2022-02-05] MEDS: TAMSULOSIN HCL 0.4 MG CAPSULE PO SCH (09:19)
[2022-02-05] MEDS: ATORVASTATIN CALCIUM 40 MG TABLET PO SCH (09:19)
[2022-02-05] MEDS: FLUCONAZOLE 200 MG TABLET PO SCH (09:19)
[2022-02-05] MEDS: FUROSEMIDE 40 MG TABLET PO SCH (09:19)
[2022-02-05] MEDS: CARVEDILOL 3.125 MG TABLET PO SCH (09:20)
[2022-02-05] MEDS: PredniSONE 5 MG TABLET PO SCH (09:20)
[2022-02-05] MEDS: MEROPENEM 500 MG in SODIUM CHLORIDE 0.9% 50 ML IV SCH (10:00)
[2022-02-05 11:26] LABS: GLUCOMETER DEV NAME(LOC) 5S.2B; GLUCOSE,POINT OF CARE 150 MG/DL (70-110)
[2022-02-05 11:54] VITALS: BP 148/68
[2022-02-05 12:36] LABS: GLUCOMETER DEV NAME(LOC) 5N.1C; GLUCOSE,POINT OF CARE 128 MG/DL (70-110)
[2022-02-05 12:36] LABS: GLUCOMETER DEV NAME(LOC) 5S.2B; GLUCOSE,POINT OF CARE 229 MG/DL (70-110)
[2022-02-05 16:04] VITALS: BP 150/71
[2022-02-05] MEDS ORDERED: ATOR40TA28 PO (17:16)
[2022-02-05] MEDS ORDERED: CARVEDILOL 6.25 MG TABLET PO SCH (21:00)
[2022-02-05] MEDS ORDERED: TACROLIMUS 0.5 MG CAPSULE PO SCH (21:00)
[2022-02-05] MEDS ORDERED: MEROPENEM 1 GM in SODIUM CHLORIDE 0.9% 100 ML IV SCH (22:00)
[2022-02-06] MEDS ORDERED: CLOPIDOGREL BISULFATE 75 MG TABLET PO SCH (09:00)
[2022-02-06] MEDS ORDERED: ASPIRIN 81 MG CHEWABLE TABLET PO SCH (09:00)
== END 2022-02-05 17:30 | DRG 177 ==
LOC: EMS 20:36 → 5S 01-21 14:51
PROVIDERS: ADMIT Internal Medicine; ATTEND Internal Medicine
PROC: 5A1D70Z Performance of Urinary Filtration, Intermittent, Less than 6 Hours Per Day (ICD-10-PCS; 2022-01-30)
PROC: 5A1D70Z Performance of Urinary Filtration, Intermittent, Less than 6 Hours Per Day (ICD-10-PCS; 2022-01-31)
PROC: 02HV33Z Insertion of Infusion Device into Superior Vena Cava, Percutaneous Approach (ICD-10-PCS; principal; 2022-02-04)
DX: U07.1 COVID-19 (principal); E43 Unspecified severe protein-calorie malnutrition; J12.82 Pneumonia due to coronavirus disease 2019; N18.6 End stage renal disease; B45.9 Cryptococcosis, unspecified; I69.354 Hemiplegia and hemiparesis following cerebral infarction affecting left non-dominant side; E87.1 Hypo-osmolality and hyponatremia; E87.2 Acidosis; I13.2 Hypertensive heart and chronic kidney disease with heart failure and with stage 5 chronic kidney disease, or end stage renal disease; N17.9 Acute kidney failure, unspecified; N39.0 Urinary tract infection, site not specified; Z16.24 Resistance to multiple antibiotics; T86.19 Other complication of kidney transplant; B96.20 Unspecified Escherichia coli [E. coli] as the cause of diseases classified elsewhere; E11.22 Type 2 diabetes mellitus with diabetic chronic kidney disease; E11.65 Type 2 diabetes mellitus with hyperglycemia; E78.00 Pure hypercholesterolemia, unspecified; E83.42 Hypomagnesemia; E87.6 Hypokalemia; F17.210 Nicotine dependence, cigarettes, uncomplicated; I25.10 Atherosclerotic heart disease of native coronary artery without angina pectoris; I48.91 Unspecified atrial fibrillation; I49.5 Sick sinus syndrome; I50.9 Heart failure, unspecified; M10.9 Gout, unspecified; R19.7 Diarrhea, unspecified; N40.0 Benign prostatic hyperplasia without lower urinary tract symptoms; Y83.8 Other surgical procedures as the cause of abnormal reaction of the patient, or of later complication, without mention of misadventure at the time of the procedure; Z79.01 Long term (current) use of anticoagulants; Z79.4 Long term (current) use of insulin; Z79.52 Long term (current) use of systemic steroids; Z79.82 Long term (current) use of aspirin; Z86.718 Personal history of other venous thrombosis and embolism; Z79.899 Other long term (current) drug therapy; Z91.14 Patient's other noncompliance with medication regimen; Z95.0 Presence of cardiac pacemaker; Z95.1 Presence of aortocoronary bypass graft; Z88.5 Allergy status to narcotic agent; Z91.040 Latex allergy status; Z68.25 Body mass index [BMI] 25.0-25.9, adult
CPT/HCPCS: 36245; 36569; 70450; 71045; 71250; 72192; 73700; 74150; 76770; 76937; 80048; 80053; 80197; 81001; 81002; 82271; 82570; 82728; 82962; 83615; 83735; 84100; 84132; 84145; 84156; 84300; 84540; 84550; 85007; 85025; 85027; 85379; 85610; 85730; 86140; 87040; 87045; 87086; 87177; 87252; 87324; 87340; 87449; 87899; 89055; 90935; 93970; 99285; J0360; J0696; J1644; J1815; J2185; J2250; J2543; J3010; J3475; J3490; J7030; J7040; J7050; J7060; J7507; Q9967; 36415-L1; 36415-TC

== ENCOUNTER 2022-07-26 06:41 | Emergency (ER) | payer MEDICARE, OTHER ==
[~2022-07-26] VITALS: Ht 172.7 cm; Wt 63.6 kg
[~2022-07-26 06:41] MED LIST changes: -ACET-2247 PO; -AMLO-258 PO; +ASPI81TA49 PO; -ATOR20TA86 PO; +ATOR40TA28 PO; -CARV25 PO; +CARV25TA32 PO; +DULA3PEN SQ; +EMPA10TA3 PO; -FAMO20 PO; +FLUC200T85 PO; -FOLI1TAB15 PO; -FURO40 PO; +FURO40TA5 PO; -GABA-1181 PO; -HYDR-4174 PO; +INSLAN SQ; -INSU100V SQ; -ISOS10TA16 PO; +LATA2.5D14 OU; -LIPA1CAP18 PO; -MAGN-169 PO; +PATI8.4P PO; -RIVA20TA PO; +SODI650T33 PO; -TACR1 PO; -TACR1CAP12 PO; +TACR1TAB PO; -TRAV2.5D7 OU
[2022-07-26] MEDS ORDERED: NIFE-40 PO (07:55)
[2022-07-26] MEDS ORDERED: CARV3 PO (07:55)
[2022-07-26] MEDS ORDERED: MIRT-89 PO (07:55)
[2022-07-26] MEDS ORDERED: AMOX1TAB15 PO (07:55)
[2022-07-26] MEDS ORDERED: HYDR1LIQ PO (07:55)
[2022-07-26] MEDS ORDERED: CLOP75TA60 PO (07:55)
[2022-07-26] MEDS ORDERED: ALLO-97 PO (07:55)
[2022-07-26 08:20] LABS: BASOPHILS % (AUTO) 0.4 % (0.0-2.0); EOSINOPHILS % (AUTO) 0.6 % (1.0-6.0); HEMATOCRIT 30.2 % (41-53); HEMOGLOBIN 9.9 g/dL (13.5-17.5); LYMPHOCYTES # (AUTO) 1.7 K/uL (1.0-4.8); LYMPHOCYTES % (AUTO) 15.1 % (22.0-44.0); MEAN CORPUSCULAR HEMOGLOBIN 28.1 pg (26.0-34.0); MEAN CORPUSCULAR HGB CONC 32.7 G/dL (31.0-37.0); MEAN CORPUSCULAR VOLUME 86 fL (80-100); MONOCYTES # (AUTO) 0.7 K/uL (0.1-1.0); MONOCYTES % (AUTO) 6.1 % (2.0-9.0); NEUTROPHILS # (AUTO) 8.7 K/uL (1.8-7.7); NEUTROPHILS % (AUTO) 77.8 % (40.0-70.0); PLATELET COUNT (AUTO) 234 K/uL (150-450); RED BLOOD CELL COUNT(AUTO) 3.52 MIL/uL (4.50-5.90); RED CELL DISTRIBUTION WIDTH 17.3 % (11.5-14.5)
[2022-07-26 08:35] LABS: CALCIUM, TOTAL 9.1 mg/dL (8.8-10.5); CREATININE 2.61 mg/dL (0.60-1.30); POTASSIUM 3.9 mmol/L (3.5-5.1)
[2022-07-26 08:40] LABS: ALBUMIN 2.2 g/dL (3.4-5.0); BILIRUBIN,TOTAL 0.4 mg/dL (0.1-1.0); TOTAL PROTEIN, SERUM 6.5 g/dL (6.4-8.2)
[2022-07-26 09:49] LABS: COVID AG,FIA SOURCE NASOPHARYNGEAL
[2022-07-26 10:00] LABS: APPEARANCE,URINE HAZY (CLEAR); BILIRUBIN,URINE NEGATIVE (NEGATIVE); GLUCOSE, URINE (UA) TRACE mg/dL (NEGATIVE); KETONES,URINE NEGATIVE (NEGATIVE); LEUKOCYTE ESTERASE ,URINE MODERATE (NEGATIVE); NITRATE,URINE NEGATIVE (NEGATIVE); OCCULT BLOOD,URINE NEGATIVE (NEGATIVE); PH,URINE 8.5 (5.0-8.0); PROTEIN,URINE >600,SEE CONFIRM mg/dL (NEGATIVE); SPECIFIC GRAVITIY, URINE 1.015 (1.003-1.030); UROBILINOGEN,URINE <=1.0 mg/dL (<=1.0)
[2022-07-26 10:26] LABS: BACTERIA,URINE Moderate /HPF (None Seen); RBC,URINE None Seen /HPF (0-2); SQUAMOUS EPITHELIAL CELL,UR Few /LPF (None Seen); SULFOSALICYLIC ACID,URINE 4+ (Negative)
[2022-07-26 10:27] LABS: TRIPLE PHOSPHATE CRYSTAL,UR Moderate /LPF (None Seen)
[2022-07-26 10:35] LABS: INFLUENZA TYPE A NEGATIVE FOR TYPE A (NEGATIVE); INFLUENZA TYPE B NEGATIVE FOR TYPE B (NEGATIVE)
[2022-07-26] MEDS ORDERED: CefTRIAXone 1 GM/DEXTROSE 50 ML IV ONE (10:45)
[2022-07-26 11:45] VITALS: BP 181/87
== END 2022-07-26 14:49 ==
LOC: EMS 06:43
DX: N18.6 End stage renal disease (principal); N39.0 Urinary tract infection, site not specified; R50.9 Fever, unspecified; E78.00 Pure hypercholesterolemia, unspecified; I12.0 Hypertensive chronic kidney disease with stage 5 chronic kidney disease or end stage renal disease; E11.22 Type 2 diabetes mellitus with diabetic chronic kidney disease; I25.2 Old myocardial infarction; F12.90 Cannabis use, unspecified, uncomplicated; Z99.2 Dependence on renal dialysis; Z86.73 Personal history of transient ischemic attack (TIA), and cerebral infarction without residual deficits; Z88.5 Allergy status to narcotic agent; Z91.040 Latex allergy status; Z20.822 Contact with and (suspected) exposure to COVID-19
CPT/HCPCS: 99285; 96365; 71045; 87426; 80053; 81001; 82550; 83880; 84484; 85025; 87804; 36415; 87086; 87186; 93005; J0696; 81002; 99284